=== PATIENT | male | born 1945 | race Caucasian/White ===

== ENCOUNTER 2016-10-26 11:42 | Inpatient (IN) ==
[2016-10-26] MEDS ORDERED: 0.9 % SODIUM CHLORIDE 500 ML IV ONE (12:06)
--- NOTE | 2016-10-26 12:33 | Emergency Department Note ---
General Adult HPI - General Chief complaint: Blood Pressure Problem Stated complaint: blood pressure problem Time Seen by Provider: 10/26/16 12:10 Source: patient Mode of arrival: wheelchair Limitations: no limitations - History of Present Illness HPI Narrative: patient is 71-year-old male with a long history of renal failure and previous obstructions, who presented today to his general administrator for care, his blood pressure was found to be low and he was tachycardic, so Dr. Mcgraw sent him to the ER. He states that other than feeling tired he has not felt ill, no fevers chills sweats, denies cough, admits some dyspnea on exertion, - Related Data Home Medications Medication Instructions Recorded Confirmed Ostomy System Supplies MISCELLANE 08/18/15 12/22/15 allopurinol 300 mg tablet 300 mg PO QDAY 08/18/15 12/22/15 clonidine HCl 0.2 mg tablet 0.2 mg PO BID tab 08/18/15 12/22/15 metoprolol tartrate 100 mg tablet 200 mg PO BID tab 08/18/15 12/22/15 ostomy adhesive paste See Dose Instructions .ROUTE 08/18/15 12/22/15 .MEDSUPPLY bumetanide 2 mg tablet 2 mg PO QDAY PRN 08/30/15 12/22/15 potassium chloride ER 10 mEq 10 meq PO QDAY PRN tab 08/30/15 12/22/15 tablet,extended release Previous Rx's Medication Instructions Recorded calcitriol 0.25 mcg capsule 0.25 mcg PO QDAY #60 cap 01/27/16 sodium bicarbonate 650 mg tablet 650 mg PO BID #60 tab 02/21/16 Allergies Allergy/AdvReac Type Severity Reaction Status Date / Time No Known Drug Allergies Allergy Verified 10/26/16 11:44 Review of Systems All systems ED: reviewed and negative except as stated. Past Medical History - Past Medical History Medical history: Reports: hypertension, renal disease, other (kidney failure on dialysis, hydronephrosis, colostomy,) Surgical history ED: Reports: colostomy - Social History smoking status: Former smoker Physical Exam - General Limitations: no limitations General appearance: alert, lethargic - Head Head exam: atraumatic, normocephalic - Neck Neck exam: Present: normal inspection, trachea midline. Absent: thyromegaly - Chest Chest inspection: Present: normal inspection, symmetric chest wall rise - Respiratory Respiratory exam: Present: normal lung sounds bilaterally. Absent: respiratory distress, wheezes, stridor - Cardiovascular Cardiovascular exam: Present: normal rhythm, tachycardia, +S1, +S2. Absent: JVD - Abdominal Exam Abdominal exam: Present: soft, normal bowel sounds (olostomy in place left lower quadrant, contents appear brown without signs of blood). Absent: distention, tenderness, guarding, rebound - Skin Skin exam: Present: dry, pallor (slight) Course - Reevaluation(s) Reevaluation #1: patient was found to have significant UT a hemoglobin of 7. Patient was admitted. Vital Signs Temperature 96.8 F L 10/26/16 11:42 Pulse Rate 92 H 10/26/16 11:42 Respiratory Rate 22 10/26/16 11:42 Blood Pressure 98/63 10/26/16 11:42 Pulse Oximetry (%) 100 10/26/16 11:42 Temperature 97.2 F 10/26/16 19:54 Pulse Rate 92 H 10/26/16 19:54 Respiratory Rate 16 10/26/16 19:54 Blood Pressure 94/59 10/26/16 19:54 Pulse Oximetry (%) 100 10/26/16 19:54 Medical Decision Making - Lab Data Result diagrams: 10/26/16 13:28 10/26/16 13:28 Lab Results 10/26/16 10/26/16 10/26/16 Range/Units 13:24 13:28 13:28 WBC 21.0 H (4.5-11.0) K/mcL RBC 2.41 L (4.50-5.90) M/mcL Hgb 7.0 L* (13.5-16.5) g/dL Hct 21.6 L (41.0-55.0) % MCV 89.8 (80.0-100.0) fL MCH 28.9 (26.0-34.0) pg MCHC 32.2 (31.0-36.0) g/dL RDW 17.2 H (11.5-14.5) % Plt Count 395 (140-440) K/mcL MPV 6.8 L (7.4-10.4) fL Gran % 93.1 H (38.0-78.0) % Lymph % (Auto) 3.5 L (15.5-49.0) % Sherman % (Auto) 3.2 (1.0-12.0) % Eos % (Auto) 0.1 (0.0-7.0) % Baso % (Auto) 0.1 (0.0-2.0) % Gran # 19.5 H (1.8-8.0) K/mcL Lymph # (Auto) 0.7 L (1.5-4.8) K/mcL Sherman # (Auto) 0.7 (0.1-0.9) K/mcL Eos # (Auto) 0 (0.0-0.7) K/mcL Baso # (Auto) 0 (0.0-0.3) K/mcL Total Counted 100 Seg Neutrophils % 93 H (38-78) % Band Neutrophils % 1 (0-10) % Lymphocytes % 4 L (15-49) % Monocytes % (Manual) 2 (1-12) % Platelet Estimate Normal (NORMAL) RBC Morphology Normal (NORMAL) VBG Lactic Acid 1.5 (0.5-2.2) mmol/L Sodium (133-145) mmol/L Potassium (3.3-5.1) mmol/L Chloride (96-108) mmol/L Carbon Dioxide (22-30) mmol/L Anion Gap (8-16) BUN (8-23) mg/dl Creatinine (0.7-1.2) mg/dl GFR Calculation Glucose (70-105) mg/dL Calcium (8.6-10.4) mg/dl Total Bilirubin (0.0-1.0) mg/dL AST (0-37) U/l ALT (0-40) U/l Alkaline Phosphatase (39-117) U/L Total Protein (5.9-8.4) gm/dL Albumin (3.2-5.2) gm/dL Globulin (2.2-3.7) gm/dL Albumin/Globulin Ratio (1.0-2.3) Procalcitonin (<0.10) ng/mL 10/26/16 10/26/16 Range/Units 13:28 13:28 WBC (4.5-11.0) K/mcL RBC (4.50-5.90) M/mcL Hgb (13.5-16.5) g/dL Hct (41.0-55.0) % MCV (80.0-100.0) fL MCH (26.0-34.0) pg MCHC (31.0-36.0) g/dL RDW (11.5-14.5) % Plt Count (140-440) K/mcL MPV (7.4-10.4) fL Gran % (38.0-78.0) % Lymph % (Auto) (15.5-49.0) % Sherman % (Auto) (1.0-12.0) % Eos % (Auto) (0.0-7.0) % Baso % (Auto) (0.0-2.0) % Gran # (1.8-8.0) K/mcL Lymph # (Auto) (1.5-4.8) K/mcL Sherman # (Auto) (0.1-0.9) K/mcL Eos # (Auto) (0.0-0.7) K/mcL Baso # (Auto) (0.0-0.3) K/mcL Total Counted Seg Neutrophils % (38-78) % Band Neutrophils % (0-10) % Lymphocytes % (15-49) % Monocytes % (Manual) (1-12) % Platelet Estimate (NORMAL) RBC Morphology (NORMAL) VBG Lactic Acid (0.5-2.2) mmol/L Sodium 135 (133-145) mmol/L Potassium 4.4 (3.3-5.1) mmol/L Chloride 100 (96-108) mmol/L Carbon Dioxide 17 L (22-30) mmol/L Anion Gap 18.0 H (8-16) BUN 58 H (8-23) mg/dl Creatinine 5.1 H* (0.7-1.2) mg/dl GFR Calculation 11 Glucose 102 (70-105) mg/dL Calcium 8.0 L (8.6-10.4) mg/dl Total Bilirubin 0.2 (0.0-1.0) mg/dL AST 12 (0-37) U/l ALT 6 (0-40) U/l Alkaline Phosphatase 109 (39-117) U/L Total Protein 5.2 L (5.9-8.4) gm/dL Albumin 2.2 L (3.2-5.2) gm/dL Globulin 3.0 (2.2-3.7) gm/dL Albumin/Globulin Ratio 0.7 L (1.0-2.3) Procalcitonin 3.88 (<0.10) ng/mL Disposition Pt seen by MANAGER OF PROGRAM/PA only: No Clinical Impression: UTI (urinary tract infection) Disposition: Xfer As Inpt ([facility]) Condition: Undetermined
--- NOTE | 2016-10-26 13:02 | XRay Report ---
CLINICAL INFORMATION: Sepsis COMPARISON: None. FINDINGS:The heart size, mediastinum and pulmonary vessels are unremarkable. The lungs are clear. There are no effusions. Minimal compression fractures seen throughout the mid lower thoracic spine IMPRESSION: No acute cardiopulmonary disease.. Interpreted and Authenticated by: Jack Bautista 10/26/16
--- NOTE | 2016-10-26 13:52 | Ultrasound Report ---
CLINICAL INFORMATION: Renal failure COMPARISON: 09/06/2015 FINDINGS: Both kidneys are borderline atrophic: The right is 8.1 x 4.5 cm and the left is 9.3 x 5.1 cm. Renal parenchymal echotexture is echogenic compatible with medical renal disease. There is a 10 mm cyst mid right kidney. A 7 nonobstructing stone is seen in the mid left kidney. No hydronephrosis. Urinary bladder is decompressed but shows no gross abnormality IMPRESSION: 1. No evidence of hydronephrosis 2. Elevated renal parenchymal echotexture compatible medical renal disease 3. Similar nonobstructing stone mid calyx the left kidney Interpreted and Authenticated by: Jack Bautista 10/26/16
[2016-10-26 14:15] LABS: Basophils # (Auto) 0 K/mcL (0.0-0.3); Basophils % (Auto) 0.1 % (0.0-2.0); Eosinophils # (Auto) 0 K/mcL (0.0-0.7); Eosinophils % (Auto) 0.1 % (0.0-7.0); Granulocytes % (Auto) 93.1 % (38.0-78.0); Lymphocytes # (Auto) 0.7 K/mcL (1.5-4.8); Lymphocytes % (Auto) 3.5 % (15.5-49.0); Mean Cell Volume 89.8 fL (80.0-100.0); Mean Corpuscular HGB Conc 32.2 g/dL (31.0-36.0); Mean Corpuscular Hemoglobin 28.9 pg (26.0-34.0); Monocytes # (Auto) 0.7 K/mcL (0.1-0.9); Monocytes % (Auto) 3.2 % (1.0-12.0); Platelet Count 395 K/mcL (140-440); RBC 2.41 M/mcL (4.50-5.90); Red Cell Distribution Width 17.2 % (11.5-14.5)
[2016-10-26 14:23] LABS: ALT/SGPT 6 U/l (0-40); Albumin 2.2 gm/dL (3.2-5.2); Albumin/Globulin Ratio 0.7 (1.0-2.3); Alkaline Phosphatase 109 U/L (39-117); Blood Urea Nitrogen 58 mg/dl (8-23)
[2016-10-26 14:53] LABS: Band Neutrophils % 1 % (0-10); Lymphocytes % 4 % (15-49); Monocytes % (Manual) 2 % (1-12); Platelet Estimate NORMAL (NORMAL); RBC Morphology NORMAL (NORMAL); Segmented Neutrophils % 93 % (38-78)
[2016-10-26] MEDS ORDERED: PIPERACILLIN SODIUM/TAZOBACTAM 3.375 GM in DEXTROSE 5% IN WATER 50 ML IV ONE (16:07)
[2016-10-26] MEDS ORDERED: VANCOMYCIN 1,000 MG in 0.9 % SODIUM CHLORIDE 250 ML IV ONE (16:07)
[2016-10-26] MEDS ORDERED: PIPERACILLIN SODIUM/TAZOBACTAM 3.375 GM VIAL IV ONE (16:16)
[2016-10-26] MEDS ORDERED: 0.9 % SODIUM CHLORIDE 1,000 ML IV SCH (17:15)
--- NOTE | 2016-10-26 17:25 | Cat Scan Report ---
CLINICAL INFORMATION: Abdominal pain and hypertension. History of colon carcinoma COMPARISON: 07/03/[address] [facility]. TECHNIQUE: 2.5 mm helical slices were obtained from the mid heart through the subtrochanteric regions. Following reconstruction, 2.5 mm sagittal, coronal and axial reformatted images were processed and reviewed at bone, lung and soft tissue windows. FINDINGS: Lung bases show no nodules only minimal scattered scarring and/or atelectasis. There are no effusions. The visualized heart is grossly normal. Images should the abdomen show the noncontrasted gallbladder and bile ducts, liver, both adrenal glands, spleen, pancreas and aorta to be normal in size, configuration and attenuation without focal lesion. Pelvic images show a large region of fibrosis dominating the true pelvis and presacral region spanning 9.4 cm. It is unchanged. There is heavy calcification expected location of the urinary bladder wall as previously seen. Diego catheter is in place within the urinary bladder lumen and is functional. Bilateral double pigtail ureteral stents are in satisfactory position - the proximal end in the upper collecting system of each kidney and the distal and in the urinary bladder. It appears to be functional functional: There is no evidence of hydronephrosis. Mild bilateral renal atrophy noted with scattered scarring. No free air, free fluid and no adenopathy. Distal sigmoid colectomy changes noted. The mid sigmoid has been brought through a colostomy in the left lower quadrant. There is a 3.6 cm peristomal hernia in the setting of mesenteric fat adjacent to the colostomy. No evidence of bowel obstruction - the residual colon small bowel and stomach are normal in caliber. Bone windows show no osseous metastases or other abnormality IMPRESSION: 1. 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 Presumably, this is related to prior radiation for colon malignancy. The extent is unchanged from a comparison study 1.5 years ago. Urinary bladder is encased by fibrosis. A Diego catheter is in proper position in the urinary bladder lumen. There are bilateral ureteral stents in satisfactory position and appear to be functional as there is no evidence of hydronephrosis. Mild bilateral renal atrophy is noted. 2. No evidence of metastatic disease or adenopathy 3. Partial sigmoid colectomy for carcinoma. Colostomy in the left lower quadrant for the proximal sigmoid colon noted. There is a 3.6 cm parastomal hernia consisting of mesenteric fat Interpreted and Authenticated by: Jack Bautista 10/26/16
[2016-10-26] MEDS ORDERED: NALOXONE HCL 0.4 MG/ML VIAL IV PRN (17:51)
[2016-10-26] MEDS ORDERED: ONDANSETRON 4 MG/2 ML VIAL IV PRN (17:51)
[2016-10-26] MEDS ORDERED: VANCOMYCIN PER PHARMACY IV SCH (17:51)
[2016-10-26] MEDS ORDERED: IPRATROPIUM/ALBUTEROL 3 ML AMPUL.NEB NEB PRN (17:51)
[2016-10-26] MEDS ORDERED: 0.9 % SODIUM CHLORIDE 250 ML IV SCH (17:51)
[2016-10-26] MEDS ORDERED: HYDROmorphone 2 MG/ML SYRINGE IV PRN (17:51)
[2016-10-26] MEDS ORDERED: KETAMINE 10 MG/ML ML IV PRN (19:01)
[2016-10-26] MEDS ORDERED: MIDAZOLAM 2 MG/2 ML VIAL IV SCH (19:15)
[2016-10-26] MEDS ORDERED: PROPOFOL 200 MG/20 ML VIAL IV SCH (19:15)
--- NOTE | 2016-10-26 19:17 | EGD Procedure Note ---
EGD Procedure Notes - Procedure Information Patient information: Note initiated : 10/26/16 at 7:12 pm Service Date: 10/26/16 Patient: Roland Moon 71 y/o M admitted on 10/26/16 for blood pressure problem. Procedure Narrative: EGD report Endoscopist: Antolin Calvin DO Assistants: Endoscopy nurse and techs Referring physician: Scope: GUILLE GIF 160 Medications given: 1 mg Versed, 130 mg Propofol Reason for exam: 71 y/o man with history of colon cancer s/p colectomy and ileostomy bag, CKD from chronic obstructive uropathy, and HTN, presented to the ED today for weakness. Was found to have acute on chronic anemia with Hgb 7, Heme-positive black stools, and mild increase in his Cr. His BP was in the 90s systolic when he arrived, and I was asked to assist in his care. Extent of exam: 4th portion of the duodenum/proximal jejunum. Post-procedural diagnosis: 1. Mild gastritis with small erosions in the fundus and body, not actively bleeding. Random biopsies were taken to rule out H pylori. 2. 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 Normal esophagus and small bowel Recommendations: 1. Return to [facility] outpatient GI clinic to discuss the biopsies, and any further symptoms, in 3-4 weeks after discharge. 2. Continue current medications 3. If gastric biopsy shows H pylori, treat with sequential therapy to eradication. 4. Start Protonix 40 mg daily 5. Advance diet as tolerated 6. Avoid NSAIDs Description of procedure: An informed consent was obtained with the risks, benefits, and alternatives to upper GI endoscopy explained, including the risk of perforation (1:10,000), and the patient agreed to proceed. Immediately prior to sedation, the patient's ASA classification was Class 2, and Mallampati score III. No contraindications were noted on physical exam. After being placed in the left lateral decubitus position, the patient identification was verified prior to the procedure. IV moderate sedation was administered under my direct supervision. Assessment of their sedation showed no complications with stable cardiovascular systems while comfortably sedated. Estimated blood loss for the procedure was 2 mL from biopsies. The patient tolerated the procedure well without any apparent complications. Findings: Oropharynx: Normal Esophagus: Normal mucosa GE junction: 40 cm Stomach: The fundus and body had small areas of punctate erosions and minimal gastritis. There was a 3 mm AVM in the gastric body. Pylorus: Normal patency Duodenal bulb: Normal mucosa, no other AVMs D2-4: Normal mucosa, no other AVMs Proximal jejunum: Normal mucosa, no other AVMs
[2016-10-26] MEDS ORDERED: PROPOFOL 20 ML IV ONE (19:25)
[2016-10-26] MEDS ORDERED: MIDAZOLAM 2 MG/2 ML VIAL ONE (19:25)
--- NOTE | 2016-10-26 19:46 | Internal Med History&Physical ---
Medical - H&P: HPI Patient information: Note initiated : 10/26/16 at 7:33 pm Service Date, if different from initiated Date: [] Patient: Roland Moon 71 y/o M admitted on 10/26/16 for blood pressure problem. Chief Complaint: [] History of present illness: Mr. Moon is a 71 year old [place] history of hypertension CKD, hydronephrosis in the past,bilateral stents in place, was sent to the ER from the nephrology clinic for evaluation of low blood pressure, tachycardia. The patient notes that he has had chronic weakness going on for the last few months, however, denies any other symptoms. 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 The patient had a blood pressure systolic and 90, his heart rate is 140, Creat increased from 3.8-5.1. The patient underwent a chest x-ray which was reported as negative,ultrasound of the kidneys was negative, CT abdomen and pelvis without contrast was negative for retroperitoneal hematoma. Hydronephrosis or any other acute pathology. The patient was admitted to the hospital for further management. The patient denied any complaints like fever, chills cough, shortness of breath , burning urination, increased frequency of urination. Has a chronic indwelling JERONIMO catheter. He denied any symptoms of abdominal pain, nausea, vomiting, increased stoma output, hematuria or flank. Blood in the stoma.occult blood was positive. The last hemoglobin was 9.6 on 12.01 done in AUGUST, the patient was admitted to another facility to 3 months ago, but he also had anemia and was given some . Blood transfusions. He is not sure if he had an EGD scope or a colonoscopy. The patient has a history of colon cancer, status post Hemicolectomy,he has a ostomy in place. These underwent radiation therapy after surgery. Review of systems: CONSTITUTIONAL: weight loss (chr), fever, chills,Present weakness and fatigue HEENT: Eyes: No visual loss, blurred vision, double vision or yellow sclerae. Ears, Nose, Throat: No hearing loss, sneezing, congestion, runny nose or sore throat. SKIN: No rash or itching. CARDIOVASCULAR: No chest pain, chest pressure or chest discomfort. No palpitations or edema. RESPIRATORY: No shortness of breath, cough or sputum. GASTROINTESTINAL: No nausea, vomiting or diarrhea or constipation. No abdominal pain or blood in stools No Renee. (today has some dark stools) GENITOURINARY: Denies Burning on urination. Blood in urine, or foul smelling urine , chr jeronimo NEUROLOGICAL: No headache, dizziness, syncope, paralysis, tremors, numbness or tingling in the extremities. No change in bowel or bladder control. MUSCULOSKELETAL: No muscle, back pain, joint pain or stiffness. HEMATOLOGIC: No bleeding or bruising. No enlarged nodes PSYCHIATRIC: No depression or anxiety. ENDOCRINOLOGIC: No reports of sweating, cold or heat intolerance. No polyuria or polydipsia. ALLERGIES: No hives, eczema or rhinitis. Skin: No rash, no jaundice, cyanosis or pallor. Medical - H&P: [facility] Medical history: Medical History (Last Updated 08/31/15 @ 15:28 by Samantha Alfaro) Gross hematuria (Chronic) Obstructive uropathy (Chronic) Chronic renal insufficiency (Chronic) Colon cancer (Chronic) Acute urinary obstruction (Chronic) Renal insufficiency syndrome (Chronic) HTN (hypertension) (Chronic) Edema (Chronic) Scar tissue (Chronic) Acute bilateral obstructive uropathy (Chronic) History of colon cancer (Chronic) Hydronephrosis (Chronic) Rectal mass (Chronic) Chronic kidney disease (Chronic) Elevated serum creatinine (Chronic) Surgical history: Past Surgical History (Last Updated 08/18/15 @ 09:00 by Trinity Badillo) History of colostomy (Chronic) History of echocardiogram (Chronic 01/08/13) History of radiation therapy (Chronic) Pertinent family history: Family History Other No pertinent family history Medical - H&P: Meds Home Medications Medication Instructions Recorded Confirmed Type Ostomy System Supplies MISCELLANE 08/18/15 12/22/15 History allopurinol 300 mg tablet 300 mg PO QDAY 08/18/15 12/22/15 History clonidine HCl 0.2 mg tablet 0.2 mg PO BID tab 08/18/15 12/22/15 History metoprolol tartrate 100 mg tablet 200 mg PO BID tab 08/18/15 12/22/15 History ostomy adhesive paste See Dose Instructions .ROUTE 08/18/15 12/22/15 History .MEDSUPPLY bumetanide 2 mg tablet 2 mg PO QDAY PRN 08/30/15 12/22/15 History potassium chloride ER 10 mEq 10 meq PO QDAY PRN tab 08/30/15 12/22/15 History tablet,extended release calcitriol 0.25 mcg capsule 0.25 mcg PO QDAY #60 cap 01/27/16 01/27/16 Rx sodium bicarbonate 650 mg tablet 650 mg PO BID #60 tab 02/21/16 Rx Allergies Allergy/AdvReac Type Severity Reaction Status Date / Time No Known Drug Allergies Allergy Verified 10/26/16 11:44 Medical - H&P: Exam - Constitutional Vitals: Temp Pulse Resp BP Pulse Ox 98.4 F 91 H 16 114/78 100 10/26/16 18:00 10/26/16 18:00 10/26/16 19:01 10/26/16 19:01 10/26/16 19:01 Exam: GENERAL: The patient is a well-developed, well-nourished in no apparent distress. Is alert and oriented x3. appears pale. VITAL SIGNS: Reviewed and as noted elsewhere. HEENT: Head is normocephalic and atraumatic. Extraocular muscles are intact. Pupils are equal, round, and reactive to light. Nares appeared normal. Mouth appears any without lesions. Mucous membranes are dry NECK: Normal to inspection, Supple, No lymphadenopathy or thyromegaly. LUNGS: Air entry equal on both sides, no wheezing, crackles or rhonchi noted. No accessory muscles of respiration HEART: Regular rate and rhythm normal, S1 and S2 heard, no Gallop, S3 or Rub Noted, No Gross murmur heard. ABDOMEN: Soft, nontender, and nondistended. Positive bowel sounds. No hepatosplenomegaly was noted. Ostomy with dark stools, no pietro blood. EXTREMITIES: No cyanosis, clubbing, rash, lesions or edema. NEUROLOGIC: Cranial nerves II through XII are grossly intact. Motor and Sensory System Grossly Intact PSYCHIATRIC: Normal affect, Normal Mood. Appropriate Behavior. SKIN: No ulceration or wounds noted, No jaundice, No rash noted. Medical - H&P: Reslt - Labs CBC & Chem 7: 10/26/16 13:28 10/26/16 13:28 Medical - H&P: A/P - Narrative A/P Narrative: Assessment Sepsis UTI Severe Anemia Acute on Chr renal failure HTN Plan Treat sepsis as per protocol. IV fluids, BP is stable. IV vanco and zosyn given in ER, will switch to rocephin in light of UTI will need jeronimo change Transfuse 2 units prbc, recheck h/h GI consult for EGD scopy IV ppi Send anemia workup monitor renal function, nephrology consulted. Hold BP meds for now, pt reports that he has stopped taking DVT SCD Diet NPO for now, Renal diet after EGD Full code. Medical - H&P: Qual - VTE Deep Vein Thrombosis/Pulmonary Embolism Present on Admission: No Social History - Social History occupational status: retired - Tobacco smoking status: Never smoker - Alcohol alcohol intake frequency: 0-2 drinks per day
--- NOTE | 2016-10-26 20:40 | Nephrology Consult Note ---
History of Present Illness - Reason for Consult Patient information: Note initiated : 10/26/16 at 8:33 pm Service Date, if different from initiated Date: [] Patient: Roland Moon 71 y/o M admitted on 10/26/16 for blood pressure problem. Chief Complaint: [] Consult date: 10/26/16 chronic renal failure Requesting physician: Pravin Grijalva - Chief Complaint weakness - History of Present Illness Patient is a 71 y/o pleasant white male with multiple medical issues including CKD who was seen in my clinic this am and noted to have hypotension and tachycardia and hence was sent to ER The patient has had multiple ongoing issues recently, he was hospitalised at [facility] in june-july for urosepsis, acute on chronic renal failure, etc. He had prolonged hospitalisation followed by SNF placement and was discharged sometime in August. He states that he had bilateral hydronephrosis then and needed change of his stents, antibiotics and blood transfusion. Post hospital stay he has not been doing good with poor po intake, weakness and he has lost almost 40 lbs since last seen in fall last year. He denies any fever, chills no diarrhea,nausea, vomiting no other pertinent history provided In ER patient was noted to have WBC count of 21K with left shift, Hb of 7 down from 9.8 a month ago, his s.creat was upto 5.1, elevated procalcitonin he is hemoccult positive his CT scan of the abdomen and renal US was unremarkable for new change, he does have chronic issues which seem stable and there is no hydronpehrosis he was given zosyn and vanc on my recommendation, IVF and subsequently hospitalised he also has EGD which shows mild gastritis with multiple erosions and single AVM Review of Systems All systems PM: reviewed and no additional remarkable complaints except as stated ( IN hpi) Past History Past medical history: HTN Colon cancer s/p hemicolectomy and radiation surgery h/o bilateral hydronephrosis s/o stent placement and change of this h/o CKD stage IV/V renal osteodystrophy metabolic acidosis dyslipidemia chronic anemia gout Past surgical history: as mentioned above Past family history: not contributory Past social history: lives with his mother in [place] he has no current addictions Medications and Allergies Home Medications Medication Instructions Recorded Confirmed Type Ostomy System Supplies MISCELLANE 08/18/15 12/22/15 History allopurinol 300 mg tablet 300 mg PO QDAY 08/18/15 12/22/15 History clonidine HCl 0.2 mg tablet 0.2 mg PO BID tab 08/18/15 12/22/15 History metoprolol tartrate 100 mg tablet 200 mg PO BID tab 08/18/15 12/22/15 History ostomy adhesive paste See Dose Instructions .ROUTE 08/18/15 12/22/15 History .MEDSUPPLY bumetanide 2 mg tablet 2 mg PO QDAY PRN 08/30/15 12/22/15 History potassium chloride ER 10 mEq 10 meq PO QDAY PRN tab 08/30/15 12/22/15 History tablet,extended release calcitriol 0.25 mcg capsule 0.25 mcg PO QDAY #60 cap 01/27/16 01/27/16 Rx sodium bicarbonate 650 mg tablet 650 mg PO BID #60 tab 02/21/16 Rx Allergies Allergy/AdvReac Type Severity Reaction Status Date / Time No Known Drug Allergies Allergy Verified 10/26/16 11:44 Exam - Vital Signs Vital signs: Temp Pulse Resp BP Pulse Ox 97.2 F 92 H 16 94/59 100 10/26/16 19:54 10/26/16 19:54 10/26/16 19:54 10/26/16 19:54 10/26/16 19:54 - General Appearance General appearance: appears started age, chronically ill, frail EENT: PERRL (pale conjunctiva) Neck: no JVD Respiratory: clear Cardiology: no rub, no edema, normal S1, normal S2 Gastrointestinal: tenderness (mildright upper quadrant) Integumentary: no rash, warm and dry Neurologic: no asterixis, alert and oriented x3 Musculoskeletal: no cyanosis, no clubbing Psychiatric: mood/affect appropriate Results - Lab Results 10/26/16 13:28 10/26/16 13:28 Most recent lab results Calcium 8.0 mg/dl (8.6-10.4) L 10/26/16 13:28 Assessment and Plan (1) Acute on chronic renal failure acute on chronic renal failure s.creatinine was 3.8 in August and now 5.1' worse his renal US shows mild atrophy of both kidneys but no hydronephrosis acute worsening likely from volume depletion/hypotension making urine no acute indication for dialysis however patient looks malnourished with poor muscle mass unclear what his true egfr is will follow the labs and if no significant improvement in renal function will need to obtain 24 hour urinary clearance (urea and creatinine) to see if his poor recovery os sec to ESRD I have briefly discussed possibility of initiating dialysis but patient is still refusing his BP has improved just with 500cc IVF and he will receive 2units of PRBC as well monitor I/O, dose meds to egfr less than 10 avoid nephrotoxic meds Anemia: severe, hemoccult +, s/p EGD will receive prbc transfusion will obtain anemia work up if iron stores adequate may need to initiate aranesp outpatient metabolic acidosis: mild, high Agap from renal failure, lactic acid level is normal will follow the trend and restart sodium bicarb if needed Urosepsis: wbc count is 21K UA done yesterday showed nitritie and lE positive culture pending started on ceftriaxone management per hospitalist Malnutrition: albumin trending down will need to initiate nepro discussed code, he wants to be full code for now will follow along Appreciate hospitalist help in managing Mr Moon Status: Acute
[2016-10-26] MEDS: cefTRIAXone 2 GM in DEXTROSE 5% IN WATER 50 ML IV SCH (20:50)
[2016-10-26] MEDS: PANTOPRAZOLE 40 MG VIAL IV SCH (20:52)
[2016-10-26] MEDS: 0.9 % SODIUM CHLORIDE 1,000 ML IV SCH (20:53)
[2016-10-26] MEDS ORDERED: LORazepam 2 MG/ML VIAL IV ONE (21:43)
[2016-10-26] MEDS ORDERED: LORazepam 2 MG/ML VIAL ONE (21:54)
[2016-10-26] MEDS: 0.9 % SODIUM CHLORIDE 10 ML SYRINGE IV SCH (22:31)
[2016-10-27] MEDS ORDERED: PIPERACILLIN SODIUM/TAZOBACTAM 2.25 GM in DEXTROSE 5% IN WATER 50 ML IV SCH (01:00)
[2016-10-27 02:31] LABS: Mean Cell Volume 90.2 fL (80.0-100.0); Mean Corpuscular HGB Conc 32.2 g/dL (31.0-36.0); Platelet Count 333 K/mcL (140-440); RBC 2.43 M/mcL (4.50-5.90); Red Cell Distribution Width 16.9 % (11.5-14.5)
[2016-10-27 03:06] LABS: Anisocytosis 1+ (NONE SEEN); Eosinophils % (Manual) 1 % (0-7); Lymphocytes % 6 % (15-49); Monocytes % (Manual) 8 % (1-12); Platelet Estimate NORMAL (NORMAL); RBC Morphology ABNORM (NORMAL); Segmented Neutrophils % 85 % (38-78)
[2016-10-27 04:31] LABS: Folate 17.2 ng/mL (4.2-19.9)
[2016-10-27 05:08] LABS: Vitamin B12 210.5 pg/ml (243-894)
[2016-10-27 06:43] LABS: Basophils # (Auto) 0 K/mcL (0.0-0.3); Basophils % (Auto) 0.3 % (0.0-2.0); Eosinophils # (Auto) 0.4 K/mcL (0.0-0.7); Eosinophils % (Auto) 2.7 % (0.0-7.0); Granulocytes % (Auto) 84.5 % (38.0-78.0); Lymphocytes # (Auto) 1.1 K/mcL (1.5-4.8); Lymphocytes % (Auto) 7.3 % (15.5-49.0); Mean Cell Volume 88.9 fL (80.0-100.0); Mean Corpuscular HGB Conc 33.1 g/dL (31.0-36.0); Mean Corpuscular Hemoglobin 29.4 pg (26.0-34.0); Monocytes # (Auto) 0.8 K/mcL (0.1-0.9); Monocytes % (Auto) 5.2 % (1.0-12.0); Platelet Count 349 K/mcL (140-440); Red Cell Distribution Width 16.5 % (11.5-14.5)
[2016-10-27 06:59] LABS: ALT/SGPT < 5 U/l (0-40); Albumin 1.8 gm/dL (3.2-5.2); Albumin/Globulin Ratio 0.7 (1.0-2.3); Alkaline Phosphatase 89 U/L (39-117); Bilirubin,Direct < 0.2 mg/dL (0.0-0.3); Blood Urea Nitrogen 54 mg/dl (8-23); Gamma Glutamyl Transpeptidase 21 U/L (8-61); Magnesium 1.8 mg/dL (1.6-2.5); Uric Acid 2.9 mg/dL (2.5-8.0)
--- NOTE | 2016-10-27 07:08 | XRay Report ---
CLINICAL INFORMATION: PICC placement COMPARISON: 10/26/2016 1233 hours FINDINGS: PICC line tip overlies the SVC/ right atrial junction in satisfactory position. Heart size, mediastinum and pulmonary vessels are normal. Lungs are clear. No effusions. Slight elevation left diaphragm noted on this particular film IMPRESSION: No acute disease. PICC line satisfactory position Interpreted and Authenticated by: Jack Bautista 10/27/16
[2016-10-27] MEDS: 0.9 % SODIUM CHLORIDE 1,000 ML IV SCH ×2 (07:15→09:40)
[2016-10-27] MEDS ORDERED: 0.9 % SODIUM CHLORIDE 10 ML SYRINGE IV PRN (07:25)
[2016-10-27] MEDS: SODIUM BICARBONATE 650 MG TABLET PO SCH ×2 (09:36→20:48)
[2016-10-27] MEDS: cefTRIAXone 2 GM in DEXTROSE 5% IN WATER 50 ML IV SCH (09:36)
[2016-10-27] MEDS: 0.9 % SODIUM CHLORIDE 10 ML SYRINGE IV SCH ×2 (09:39→16:56)
[2016-10-27] MEDS: PANTOPRAZOLE 40 MG VIAL IV SCH ×2 (09:39→16:56)
[2016-10-27] MEDS ORDERED: LIDOCAINE 2% URO-JET 5 ML JEL.PF.APP UR ONE (10:03)
--- NOTE | 2016-10-27 14:13 | Internal Med Progress Note ---
Medical - PN: Subj Patient information: Note initiated : 10/27/16 at 2:11 pm Service Date, if different from initiated Date: [] Patient: Roland Moon 71 y/o M admitted on 10/26/16 for Blood Pressure Problem/ Sepsis, UTI. Chief Complaint: [] Interval history: Mr. Moon is a 71 year old Malewith history of hypertension CKD, hydronephrosis in the past,bilateral stents in place, was sent to the ER from the nephrology clinic for evaluation of low blood pressure, tachycardia. The patient notes that he has had chronic weakness going on for the last few months, however, denies any other symptoms. 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 The patient had a blood pressure systolic and 90, his heart rate is 140, Creat increased from 3.8-5.1. The patient underwent a chest x-ray which was reported as negative,ultrasound of the kidneys was negative, CT abdomen and pelvis without contrast was negative for retroperitoneal hematoma. Hydronephrosis or any other acute pathology. The patient was admitted to the hospital for further management. The patient denied any complaints like fever, chills cough, shortness of breath , burning urination, increased frequency of urination. Has a chronic indwelling DUCKWORTH catheter. He denied any symptoms of abdominal pain, nausea, vomiting, increased stoma output, hematuria or flank. Blood in the stoma.occult blood was positive. The last hemoglobin was 9.6 on 12.01 done in AUGUST, the patient was admitted to another facility to 3 months ago, but he also had anemia and was given some . Blood transfusions. He is not sure if he had an EGD scope or a colonoscopy. The patient has a history of colon cancer, status post Hemicolectomy,he has a ostomy in place. These underwent radiation therapy after surgery. 10/27: Pt seen examined, no acute overnight events, s/p 2 units prbc, hb stable this AM, s/p EGD revealed gastritis small erosions and one AVM, no active bleeding. Patient had a pICC placed for IV access yesterday. He denied any acute issue labs reviewed, Pertinent ROS: Denies headache, dizziness Denies chest pain, palpitations Denies cough or shortness of breath Denies abdominal pain, nausea or vomiting. - Constitutional Vitals: Vital Signs Temp Pulse Resp BP Pulse Ox 97.7 F 89 16 113/65 97 10/27/16 12:01 10/27/16 12:01 10/27/16 13:30 10/27/16 12:01 10/27/16 13:30 Period Temp Pulse Resp BP Sys/De Luna Pulse Ox Last 24 Hr 97.2 F-98.9 F 85-97 11-21 90-120/57-78 92-100 Intake and Output 10/27/16 10/27/16 10/27/16 05:59 13:59 21:59 Intake Total 600 / 600 Output Total 590 / 590 575 / 575 Balance -590 / -590 25 Intake & Output: Intake & Output 10/27/16 10/27/16 10/27/16 05:59 13:59 21:59 Intake Total 600 / 600 Output Total 590 / 590 575 / 575 Balance -590 / -590 Intake: Oral 600 / 600 Output: Urine Catheter Amount 540 / 540 575 / 575 Stool 50 / 50 Other: Meal Lunch Percent of Meal Consumed 100% Feeding Ability Assist with Tray Set Up Exam: Constitutional; Afebrile, cooperative, alert, not in distress. pallor resolved. Eyes- No icterus, , No periorbital swelling Ears- Ext ear normal, hearing normal to conversation. Neck- Midline trachea, supple Respiratory system: Air Entry equal on both sides, No crackles or wheezing, no rhonchi. CVS- Rate rhythm regular, S1,S2 heard, no gallop, no rub. Abdomen- Soft nontender abdomen, no organomegaly, no tenderness, no guarding or rigidity, ostmoy in place ASSISTANT IMPORT MANAGER- AOOx3, moving all extremities, no gross focal deficit noted. Medical - PN: Obj Da - Labs CBC & Chem 7: 10/27/16 05:20 10/27/16 05:30 Labs: Abnormal Lab Results 10/27/16 10/27/16 10/27/16 05:30 05:20 01:45 WBC 14.9 H 13.6 H RBC 3.10 L 2.43 L Hgb 9.1 L 7.1 L Hct 27.6 L 21.9 L RDW 16.5 H 16.9 H MPV 6.9 L 6.8 L Gran % 84.5 H Lymph % (Auto) 7.3 L Gran # 12.5 H Lymph # (Auto) 1.1 L Seg Neutrophils % 85 H Lymphocytes % 6 L RBC Morphology Abnorm A Anisocytosis 1+ A Carbon Dioxide 17 L BUN 54 H Creatinine 4.6 H Calcium 7.5 L Phosphorus 5.5 H Total Protein 4.5 L Albumin 1.8 L Albumin/Globulin Ratio 0.7 L Meds: Medications Acetaminophen (Tylenol) 650 mg PO Q4-6HP PRN PRN Reason: PAIN/FEVER > 101 Albuterol/Ipratropium (Duoneb) 3 ml NEB Q6HRT PRN PRN Reason: Shortness Of Breath Or Wheezing Heparin Sodium (Porcine) (Heparin Flush) 2 ml IV Q12 [facility] Last Admin: 10/27/16 09:37 Dose: 2 ml Hydromorphone HCl (Dilaudid) 0.5 mg IV Q2HP PRN PRN Reason: Pain Last Admin: 10/26/16 20:49 Dose: 0.5 mg Ceftriaxone Sodium 2 gm/ (Dextrose) 50 mls @ 100 mls/hr IV Q24H [facility] Last Admin: 10/27/16 09:36 Dose: 100 mls/hr Sodium Chloride (Sodium Chloride 0.9%) 1,000 mls @ 84 mls/hr IV .[id number] [facility] Last Admin: 10/27/16 09:40 Dose: 84 mls/hr Naloxone HCl (Narcan) 0.1 mg IV Q2MIN PRN PRN Reason: Opiate Reversal Ondansetron HCl (Zofran) 4 mg IV Q4-6HP PRN PRN Reason: Nausea And Vomiting Pantoprazole Sodium (Protonix) 40 mg IV BIDAC [facility] Last Admin: 10/27/16 09:39 Dose: 40 mg Sodium Bicarbonate (Sodium Bicarbonate) 1,300 mg PO BID [facility] Last Admin: 10/27/16 09:36 Dose: 1,300 mg Sodium Chloride (Saline Flush) 10 ml IV Q8 [facility] Last Admin: 10/27/16 09:39 Dose: 10 ml Sodium Chloride (Saline Flush) 10 ml IV UD PRN PRN Reason: FLUSH Medical - PN: A/P - Time Spent With Patient Total time spent is greater than 50% in coordination of care (as documented) at patient's floor/unit and/or counseling patient: - Narrative A/P Narrative: Assessment Sepsis UTI Severe Anemia duet o chr blood loss and renal failuire. Acute on Chr renal failure HTN Acidosis, hagma and nagma Severe malnutrition Plan BP stable, sepsis improving, IV vTreat UTI with IV rocephin, continue iv antibiotics for now, duckworth changed today s/p 2 units, hb > 9.0, monitor for now, transfuse again if needed. GI consult appreciated, s/p EGD, monitor. continue PPI elevated ferritin likely from acute state. renal function somewhat better started on sodium bicarbonate. Advance diet, add nepro, dietar y eval. appreciate nephrology consult. DVT SCD Diet renal with nepro Full code. Medical - PN: Qual - VTE Deep Vein Thrombosis/Pulmonary Embolism Present on Admission: No
--- NOTE | 2016-10-27 16:22 | Nephrology Progress Note ---
Subjective Patient information: Note initiated : 10/27/16 at 4:18 pm Service Date, if different from initiated Date: [] Patient: Roland Moon 71 y/o M admitted on 10/26/16 for Blood Pressure Problem/ Sepsis, UTI. Chief Complaint: [] Principal diagnosis: sepsis, Acute on chronic renal failure Interval history: s/p PRBC transfusion yesterday Vital signs stable denies SOB, CP, dizziness No edema no overnight events reported Pertinent ROS: as listed above Objective - Vital Signs Vital signs: Vital Signs Temp Pulse Pulse Resp BP BP Pulse Ox 10/27/16 13:30 16 97 10/27/16 12:01 97.7 F 89 18 113/65 99 10/27/16 11:09 93 H 15 99 10/27/16 11:01 85 16 101/67 98 10/27/16 10:18 88 16 99 10/27/16 10:01 97 H 18 120/71 100 10/27/16 09:01 92 H 15 103/70 99 10/27/16 08:01 97.8 F 91 H 16 111/69 99 10/27/16 07:01 88 16 100/64 99 10/27/16 06:01 18 106/70 99 10/27/16 05:01 17 97/65 100 10/27/16 04:01 98.9 F 15 102/70 100 10/27/16 03:01 15 110/71 100 10/27/16 02:01 97.9 F 11 L 90/58 99 10/27/16 01:01 13 90/62 100 10/27/16 00:01 98.4 F 21 101/69 100 10/26/16 23:11 98.0 F 12 94/73 100 10/26/16 23:01 98.0 F 12 98/71 100 10/26/16 21:26 16 93/57 99 10/26/16 20:00 98.9 F 91 H 18 101/72 99 10/26/16 19:54 97.2 F 92 H 16 94/59 100 10/26/16 19:42 97.2 F 92 H 16 114/72 100 10/26/16 19:01 16 114/78 100 10/26/16 18:00 98.4 F 91 H 16 111/68 92 Intake and Output 10/27/16 10/27/16 10/27/16 05:59 13:59 21:59 Intake Total 600 / 600 Output Total 590 / 590 575 / 575 Balance -590 / -590 Intake: Oral 600 / 600 Output: Urine Catheter Amount 540 / 540 575 / 575 Stool 50 / 50 Other: Meal Lunch Percent of Meal Consumed 100% Feeding Ability Assist with Tray Set Up Weight 150 lb 3.2 oz Patient Weight 10/28/16 05:59 Weight 150 lb 3.2 oz Intake & Output: Intake & Output 10/27/16 10/27/16 10/27/16 05:59 13:59 21:59 Intake Total 600 / 600 Output Total 590 / 590 575 / 575 Balance -590 / -590 Weight 150 lb 3.2 oz Intake: Oral 600 / 600 Output: Urine Catheter Amount 540 / 540 575 / 575 Stool 50 / 50 Other: Meal Lunch Percent of Meal Consumed 100% Feeding Ability Assist with Tray Set Up - General Appearance General appearance: appears started age, cachectic, chronically ill EENT: mucous membranes moist Neck: no JVD Respiratory: clear Cardiology: no rub, no edema, normal S1, normal S2 Gastrointestinal: no tenderness, no guarding Integumentary: no rash, warm and dry Neurologic: alert and oriented x3 Musculoskeletal: no erythema, no cyanosis Psychiatric: mood/affect appropriate - Lab 10/27/16 05:20 10/27/16 05:30 Most recent lab results Calcium 7.5 mg/dl (8.6-10.4) L 10/27/16 05:30 Phosphorus 5.5 mg/dL (2.7-4.5) H 10/27/16 05:30 Magnesium 1.8 mg/dL (1.6-2.5) 10/27/16 05:30 Assessment and Plan (1) Acute on chronic renal failure s.creatinine down to 4.6 no acute need for dialysis will follow the trend if no significant improvement in renal function will need 24 hour urinary work up to asses his true GFR, discussed with the patient no hyperkalemia, bicarb stable, has acidosis from CKD: will restart sodium bicarb Anemia: Hb improved to 9.0 with transfusion, low b12 and low TSAT but ferritin is 1700 will start b12 supplement and will need franny as outpt UTI: on antibiotics, UC shows pseudomonas, senstivity pending Will follow along Status: Acute
[2016-10-27] MEDS: ACETAMINOPHEN 325 MG TABLET PO PRN (16:56)
[2016-10-27] MEDS: PIPERACILLIN SODIUM/TAZOBACTAM 2.25 GM in DEXTROSE 5% IN WATER 50 ML IV SCH ×2 (16:58→23:45)
[2016-10-28] MEDS: 0.9 % SODIUM CHLORIDE 10 ML SYRINGE IV SCH ×4 (03:26→20:48)
[2016-10-28] MEDS: 0.9 % SODIUM CHLORIDE 1,000 ML IV SCH ×2 (03:38→21:05)
[2016-10-28 05:36] LABS: Basophils # (Auto) 0 K/mcL (0.0-0.3); Basophils % (Auto) 0.3 % (0.0-2.0); Eosinophils # (Auto) 0.3 K/mcL (0.0-0.7); Eosinophils % (Auto) 2.8 % (0.0-7.0); Lymphocytes # (Auto) 1.1 K/mcL (1.5-4.8); Lymphocytes % (Auto) 9.5 % (15.5-49.0); Mean Cell Volume 88.8 fL (80.0-100.0); Mean Corpuscular HGB Conc 32.4 g/dL (31.0-36.0); Mean Corpuscular Hemoglobin 28.7 pg (26.0-34.0); Monocytes # (Auto) 0.5 K/mcL (0.1-0.9); Monocytes % (Auto) 4.4 % (1.0-12.0); Platelet Count 309 K/mcL (140-440); RBC 2.79 M/mcL (4.50-5.90); Red Cell Distribution Width 17.6 % (11.5-14.5)
[2016-10-28 05:49] LABS: ALT/SGPT < 5 U/l (0-40); Albumin 1.4 gm/dL (3.2-5.2); Albumin/Globulin Ratio 0.6 (1.0-2.3); Alkaline Phosphatase 83 U/L (39-117); Bilirubin,Direct < 0.2 mg/dL (0.0-0.3); Blood Urea Nitrogen 43 mg/dl (8-23); Gamma Glutamyl Transpeptidase 20 U/L (8-61); Magnesium 1.6 mg/dL (1.6-2.5); Uric Acid 2.6 mg/dL (2.5-8.0)
[2016-10-28 06:37] LABS: Vancomycin,Random 11.8 ug/ml
[2016-10-28] MEDS: PANTOPRAZOLE 40 MG VIAL IV SCH ×2 (08:09→17:43)
[2016-10-28] MEDS: SODIUM BICARBONATE 650 MG TABLET PO SCH ×2 (08:45→20:47)
[2016-10-28] MEDS ORDERED: POTASSIUM CHLORIDE 40 MEQ in DEXTROSE 5% IN WATER 250 ML IV ONE (09:00)
--- NOTE | 2016-10-28 09:26 | Internal Med Progress Note ---
Medical - PN: Subj Patient information: Note initiated : 10/28/16 at 9:24 am Service Date, if different from initiated Date: [] Patient: Roland Moon 71 y/o M admitted on 10/26/16 for Blood Pressure Problem/ Sepsis, UTI. Chief Complaint: [] Interval history: Mr. Moon is a 71 year old Malewith history of hypertension CKD, hydronephrosis in the past,bilateral stents in place, was sent to the ER from the nephrology clinic for evaluation of low blood pressure, tachycardia. The patient notes that he has had chronic weakness going on for the last few months, however, denies any other symptoms. 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 The patient had a blood pressure systolic and 90, his heart rate is 140, Creat increased from 3.8-5.1. The patient underwent a chest x-ray which was reported as negative,ultrasound of the kidneys was negative, CT abdomen and pelvis without contrast was negative for retroperitoneal hematoma. Hydronephrosis or any other acute pathology. The patient was admitted to the hospital for further management. The patient denied any complaints like fever, chills cough, shortness of breath , burning urination, increased frequency of urination. Has a chronic indwelling DUCKWORTH catheter. He denied any symptoms of abdominal pain, nausea, vomiting, increased stoma output, hematuria or flank. Blood in the stoma.occult blood was positive. The last hemoglobin was 9.6 on 12.01 done in AUGUST, the patient was admitted to another facility to 3 months ago, but he also had anemia and was given some . Blood transfusions. He is not sure if he had an EGD scope or a colonoscopy. The patient has a history of colon cancer, status post Hemicolectomy,he has a ostomy in place. These underwent radiation therapy after surgery. 10/27: Pt seen examined, no acute overnight events, s/p 2 units prbc, hb stable this AM, s/p EGD revealed gastritis small erosions and one AVM, no active bleeding. Patient had a pICC placed for IV access yesterday. He denied any acute issue labs reviewed, 10/28: Pt seen examined, chart reviwed, no acute events, pt doing well this AM, still has some fatigue, but no other acute issues, left leg is a bit numb, but he is able to walk on it, move it, leg feels warm, pulses present. His labs reviewed, Creat is improving at 4.0, his bicarb dropped despite being on oral bicarb. Hb dropped to 8, no reported bleeding. Vit b12 is low, plan to replace IM for now. albumin is 1.4, pt not happy with the meal choices offered on a renal diet, he is on nepro supplement. Pertinent ROS: Denies headache, dizziness Denies chest pain, palpitations Denies cough or shortness of breath Denies abdominal pain, nausea or vomiting. - Constitutional Vitals: Vital Signs Temp Pulse Resp BP Pulse Ox 98.3 F 90 15 93/57 99 10/28/16 07:01 10/28/16 08:17 10/28/16 09:06 10/28/16 09:01 10/28/16 08:17 Period Temp Pulse Resp BP Sys/De Luna Pulse Ox Last 24 Hr 97.7 F-99.0 F 80-98 11-22 93-120/57-74 97-100 Intake and Output 10/27/16 10/28/16 10/28/16 21:59 05:59 13:59 Intake Total 1350 / 1350 100 / 100 850 / 850 Output Total 390 / 390 470 / 470 45 / 45 Balance 960 / 960 -370 / -370 805 / 805 Weight 153 lb 6.4 oz Intake & Output: Intake & Output 10/27/16 10/28/16 10/28/16 21:59 05:59 13:59 Intake Total 1350 / 1350 100 / 100 850 / 850 Output Total 390 / 390 470 / 470 45 / 45 Balance 960 / 960 -370 / -370 805 / 805 Weight 153 lb 6.4 oz Intake: IV 1050 / 1050 50 / 50 Sodium Chloride 0.9% 1, 1000 / 1000 000 ml @ 84 mls/hr IV . [id number] [facility] Rx#:[id number] Zosyn 2.25 gm In Dextrose 50 / 50 50 / 50 5% in Water 50 ml @ 100 mls/hr IV Q12H [facility] Rx#: [id number] Oral 300 / 300 100 / 100 800 / 800 Output: Urine Catheter Amount 390 / 390 470 / 470 45 / 45 Other: Meal Breakfast Percent of Meal Consumed 15 Feeding Ability Independent Exam: Constitutional; Afebrile, cooperative, alert, not in distress. Eyes- No icterus, , No periorbital swelling Ears- Ext ear normal, hearing normal to conversation. Neck- Midline trachea, supple Respiratory system: Air Entry equal on both sides, No crackles or wheezing, no rhonchi. CVS- Rate rhythm regular, S1,S2 heard, no gallop, no rub. Abdomen- Soft nontender abdomen, no organomegaly, no tenderness, no guarding or rigidity, stomy present legs, warm to touch, good capillary refill, dp present. 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 , Medical - PN: Obj Da - Labs CBC & Chem 7: 10/28/16 04:13 10/28/16 04:13 Labs: Abnormal Lab Results 10/28/16 10/28/16 10/27/16 04:13 04:13 05:30 WBC 11.6 H RBC 2.79 L Hgb 8.0 L Hct 24.8 L RDW 17.6 H MPV 6.7 L Gran % 83.0 H Lymph % (Auto) 9.5 L Gran # 9.6 H Lymph # (Auto) 1.1 L Seg Neutrophils % Lymphocytes % RBC Morphology Anisocytosis Potassium 3.2 L Chloride 111 H Carbon Dioxide 15 L 17 L BUN 43 H 54 H Creatinine 4.0 H 4.6 H Calcium 6.8 L 7.5 L Phosphorus 5.5 H Total Protein 3.7 L 4.5 L Albumin 1.4 L 1.8 L Albumin/Globulin Ratio 0.6 L 0.7 L 10/27/16 10/27/16 05:20 01:45 WBC 14.9 H 13.6 H RBC 3.10 L 2.43 L Hgb 9.1 L 7.1 L Hct 27.6 L 21.9 L RDW 16.5 H 16.9 H MPV 6.9 L 6.8 L Gran % 84.5 H Lymph % (Auto) 7.3 L Gran # 12.5 H Lymph # (Auto) 1.1 L Seg Neutrophils % 85 H Lymphocytes % 6 L RBC Morphology Abnorm A Anisocytosis 1+ A Potassium Chloride Carbon Dioxide BUN Creatinine Calcium Phosphorus Total Protein Albumin Albumin/Globulin Ratio Meds: Medications Acetaminophen (Tylenol) 650 mg PO Q4-6HP PRN PRN Reason: PAIN/FEVER > 101 Last Admin: 10/27/16 16:56 Dose: 650 mg Albuterol/Ipratropium (Duoneb) 3 ml NEB Q6HRT PRN PRN Reason: Shortness Of Breath Or Wheezing Cyanocobalamin (Vitamin B12) 1,000 mcg IM DAILY [facility] Stop: 11/03/16 09:01 Heparin Sodium (Porcine) (Heparin Flush) 2 ml IV Q12 [facility] Last Admin: 10/28/16 08:09 Dose: 2 ml Hydromorphone HCl (Dilaudid) 0.5 mg IV Q2HP PRN PRN Reason: Pain Last Admin: 10/26/16 20:49 Dose: 0.5 mg Piperacillin Sod/Tazobactam (Sod 2.25 gm/ Dextrose) 50 mls @ 100 mls/hr IV Q12H [facility] Last Infusion: 10/28/16 09:03 Dose: Infused Potassium Chloride 40 meq/ (Dextrose) 270 mls @ 67.5 mls/hr IV ONCE ONE Stop: 10/28/16 12:59 Last Admin: 10/28/16 08:45 Dose: 67.5 mls/hr Sodium Bicarbonate 150 meq/ (Dextrose) 1,000 mls @ 75 mls/hr IV Q20H [facility] Naloxone HCl (Narcan) 0.1 mg IV Q2MIN PRN PRN Reason: Opiate Reversal Ondansetron HCl (Zofran) 4 mg IV Q4-6HP PRN PRN Reason: Nausea And Vomiting Pantoprazole Sodium (Protonix) 40 mg IV BIDAC [facility] Last Admin: 10/28/16 08:09 Dose: 40 mg Sodium Bicarbonate (Sodium Bicarbonate) 1,300 mg PO BID [facility] Last Admin: 10/28/16 08:45 Dose: 1,300 mg Sodium Chloride (Saline Flush) 10 ml IV Q8 [facility] Last Admin: 10/28/16 06:04 Dose: 10 ml Sodium Chloride (Saline Flush) 10 ml IV UD PRN PRN Reason: FLUSH Medical - PN: A/P - Time Spent With Patient Total time spent is greater than 50% in coordination of care (as documented) at patient's floor/unit and/or counseling patient: - Narrative A/P Narrative: Assessment/ Plan Sepsis: BP stable, sepsis improving, wbc trending down, UTI: IV zosyn for UTI, urine culture is growing Pseudomonas, duckworth changed. sensitivities pending. Severe Anemia duet o chr blood loss and renal failure.: s/p 2 units, hb 8.0, monitor for now, no obvious source of bleed, will check again today. GI consult appreciated, s/p EGD, monitor. continue PPI Acute on Chr renal failure: renal function better, but creat could be falsely low given his very poor nutritional status, masking his true renal function, nephrology considering 24 hr urine creatinine clearance. HTN: Bp stable hold home meds for now. Acidosis, hagma and nagma: started on sodium bicarbonate yesterday, but bicarb dropped, will start on IV bicarb drip today. d/c saline which can contribute to NAGMA Severe malnutrition: Albumin is 1.4, on renal diet with nephro, not sure if patient is happy with his meal choices. Hypokalemia : K 3.2, replace IV Hypocalcemia: calcium low, but ok if corrected for low albumin. DVT SCD Diet renal with nepro Full code. Medical - PN: Qual - VTE Deep Vein Thrombosis/Pulmonary Embolism Present on Admission: No
[2016-10-28] MEDS ORDERED: SODIUM BICARBONATE VIAL 150 MEQ in DEXTROSE 5% IN WATER 850 ML IV SCH (10:00)
[2016-10-28] MEDS: PIPERACILLIN SODIUM/TAZOBACTAM 2.25 GM in DEXTROSE 5% IN WATER 50 ML IV SCH ×2 (10:23→20:47)
[2016-10-28] MEDS: CYANOCOBALAMIN 1,000 MCG/ML VIAL IM SCH (12:23)
[2016-10-28 12:35] LABS: Mean Cell Volume 89.9 fL (80.0-100.0); Mean Corpuscular HGB Conc 32.7 g/dL (31.0-36.0); Mean Corpuscular Hemoglobin 29.4 pg (26.0-34.0); Platelet Count 337 K/mcL (140-440); RBC 2.99 M/mcL (4.50-5.90); Red Cell Distribution Width 17.8 % (11.5-14.5)
[2016-10-28 12:50] LABS: Blood Urea Nitrogen 45 mg/dl (8-23)
[2016-10-28 13:04] LABS: Anisocytosis 1+ (NONE SEEN); Band Neutrophils % 1 % (0-10); Eosinophils % (Manual) 2 % (0-7); Lymphocytes % 5 % (15-49); Monocytes % (Manual) 5 % (1-12); Platelet Estimate NORMAL (NORMAL); RBC Morphology ABNORM (NORMAL); Segmented Neutrophils % 87 % (38-78)
[2016-10-28] MEDS ORDERED: VANCOMYCIN 500 MG in 0.9 % SODIUM CHLORIDE 100 ML IV ONE (17:00)
--- NOTE | 2016-10-28 21:47 | Nephrology Progress Note ---
Subjective Patient information: Note initiated : 10/28/16 at 9:43 pm Service Date, if different from initiated Date: [] Patient: Roland Moon 71 y/o M admitted on 10/26/16 for Blood Pressure Problem/ Sepsis, UTI. Chief Complaint: [] Principal diagnosis: sepsis, Acute on chronic renal failure Interval history: blood culture positive for gram negative bacilli, now on zosyn non oliguric c/o LE pain no SOB, CP, dizziness Poor appetite still, no nausea, vomiting urine is still very cloudy Pertinent ROS: as above Objective - Vital Signs Vital signs: Vital Signs Temp Pulse Pulse Resp BP Pulse Ox 10/28/16 21:00 78 22 99/67 99 10/28/16 20:01 84 20 108/66 99 10/28/16 19:59 98.1 F 84 21 108/66 99 10/28/16 19:25 21 10/28/16 19:01 20 105/74 10/28/16 18:15 20 10/28/16 18:01 15 120/72 10/28/16 17:33 17 10/28/16 17:01 20 103/71 10/28/16 16:25 22 10/28/16 16:01 21 120/75 10/28/16 15:01 18 110/64 10/28/16 14:50 17 89/64 10/28/16 14:49 18 10/28/16 14:01 84 22 98/65 100 10/28/16 13:01 90 14 95/72 100 10/28/16 12:07 84 20 113/67 100 10/28/16 12:03 20 111/68 10/28/16 12:01 26 H 86/72 10/28/16 12:00 98.4 F 90 24 H 111/68 99 10/28/16 11:01 14 98/67 10/28/16 10:01 22 90/61 10/28/16 09:06 15 10/28/16 09:01 20 93/57 10/28/16 08:17 90 99 10/28/16 08:14 11 L 10/28/16 08:05 15 109/63 10/28/16 07:01 98.3 F 80 17 107/65 100 10/28/16 06:01 16 99/61 100 10/28/16 05:01 21 100/67 99 10/28/16 04:01 98 F 16 111/66 100 10/28/16 03:01 18 95/62 100 10/28/16 02:01 20 101/64 100 10/28/16 01:01 22 98/64 100 10/28/16 00:01 98.5 F 17 101/60 100 10/27/16 23:01 20 100/66 100 10/27/16 22:01 20 93/64 100 Intake and Output 10/28/16 10/28/16 10/28/16 05:59 13:59 21:59 Intake Total 100 / 100 1100 / 1100 1150 / 1150 Output Total 470 / 470 145 / 145 940 / 940 Balance -370 / -370 955 / 955 210 / 210 Intake: IV 100 / 100 1000 / 1000 Zosyn 2.25 gm In Dextrose 100 / 100 5% in Water 50 ml @ 100 mls/hr IV Q12H [facility] Rx#: [id number] Oral 100 / 100 1000 / 1000 150 / 150 Output: Urine Catheter Amount 470 / 470 145 / 145 940 / 940 Stool 0 / 0 Other: Meal Breakfast Dinner Percent of Meal Consumed 15 75% Feeding Ability Independent Assist with Tray Set Up Weight 156 lb 4.8 oz Patient Weight 10/29/16 05:59 Weight 156 lb 4.8 oz Intake & Output: Intake & Output 10/28/16 10/28/16 10/28/16 05:59 13:59 21:59 Intake Total 100 / 100 1100 / 1100 1150 / 1150 Output Total 470 / 470 145 / 145 940 / 940 Balance -370 / -370 955 / 955 210 / 210 Weight 156 lb 4.8 oz Intake: IV 100 / 100 1000 / 1000 Zosyn 2.25 gm In Dextrose 100 / 100 5% in Water 50 ml @ 100 mls/hr IV Q12H [facility] Rx#: [id number] Oral 100 / 100 1000 / 1000 150 / 150 Output: Urine Catheter Amount 470 / 470 145 / 145 940 / 940 Stool 0 / 0 Other: Meal Breakfast Dinner Percent of Meal Consumed 15 75% Feeding Ability Independent Assist with Tray Set Up - General Appearance General appearance: appears started age, chronically ill, frail EENT: PERRL (pale conjunctiva ) Neck: no JVD Respiratory: clear Cardiology: no rub, no edema, normal S1, normal S2 Gastrointestinal: no tenderness, no guarding Integumentary: warm and dry Neurologic: no asterixis, alert and oriented x3 Musculoskeletal: no deformities, no erythema Psychiatric: mood/affect appropriate - Lab 10/28/16 11:30 10/28/16 11:30 Most recent lab results Calcium 7.5 mg/dl (8.6-10.4) L 10/28/16 11:30 Phosphorus 4.1 mg/dL (2.7-4.5) 10/28/16 04:13 Magnesium 1.6 mg/dL (1.6-2.5) 10/28/16 04:13 Assessment and Plan (1) Acute on chronic renal failure s.creatinine down to 4.0 no acute need for dialysis will obtain 24 hour urinary studies as patient as lost significant amount of muscle mass following prolonged recent illness no hyperkalemia, metabolic acidosis worse, from sepsis, Renal failure on bicarb supplement Anemia: Hb down to 8.0 again b12 supplement started will hold IV iron as ferritin high and active bacteremia UTI/ gram negative bacteremia: on antibiotics, UC shows pseudomonas, senstivity pending malnutrition: very poor appetite, does not eat much, will have him only on low sodium diet and see if he can eat some more overall poor prognosis Status: Acute
[2016-10-29] MEDS ORDERED: SODIUM BICARBONATE VIAL 150 MEQ in DEXTROSE 5% IN WATER 850 ML IV SCH (01:00)
[2016-10-29 03:52] LABS: Basophils # (Auto) 0 K/mcL (0.0-0.3); Basophils % (Auto) 0.2 % (0.0-2.0); Eosinophils # (Auto) 0.4 K/mcL (0.0-0.7); Granulocytes % (Auto) 81.3 % (38.0-78.0); Lymphocytes # (Auto) 1.4 K/mcL (1.5-4.8); Lymphocytes % (Auto) 11.7 % (15.5-49.0); Mean Cell Volume 88.3 fL (80.0-100.0); Mean Corpuscular HGB Conc 32.8 g/dL (31.0-36.0); Mean Corpuscular Hemoglobin 28.9 pg (26.0-34.0); Monocytes # (Auto) 0.4 K/mcL (0.1-0.9); Monocytes % (Auto) 3.8 % (1.0-12.0); Platelet Count 371 K/mcL (140-440); RBC 3.03 M/mcL (4.50-5.90); Red Cell Distribution Width 17.8 % (11.5-14.5)
[2016-10-29 04:09] LABS: ALT/SGPT < 5 U/l (0-40); Albumin 1.7 gm/dL (3.2-5.2); Albumin/Globulin Ratio 0.7 (1.0-2.3); Alkaline Phosphatase 105 U/L (39-117); Bilirubin,Direct < 0.2 mg/dL (0.0-0.3); Blood Urea Nitrogen 39 mg/dl (8-23); Gamma Glutamyl Transpeptidase 30 U/L (8-61); Magnesium 1.6 mg/dL (1.6-2.5); Uric Acid 2.9 mg/dL (2.5-8.0)
[2016-10-29] MEDS: 0.9 % SODIUM CHLORIDE 10 ML SYRINGE IV SCH ×3 (05:21→23:08)
[2016-10-29] MEDS ORDERED: POTASSIUM CHLORIDE 20 MEQ PACKET PO ONE (08:40)
[2016-10-29] MEDS: PANTOPRAZOLE 40 MG VIAL IV SCH ×2 (08:51→16:46)
[2016-10-29] MEDS: PIPERACILLIN SODIUM/TAZOBACTAM 2.25 GM in DEXTROSE 5% IN WATER 50 ML IV SCH ×2 (08:54→19:14)
[2016-10-29] MEDS: 0.9 % SODIUM CHLORIDE 1,000 ML IV SCH ×2 (08:56→23:07)
[2016-10-29] MEDS: CYANOCOBALAMIN 1,000 MCG/ML VIAL IM SCH (10:11)
[2016-10-29] MEDS: SODIUM BICARBONATE 650 MG TABLET PO SCH ×2 (10:11→21:33)
--- NOTE | 2016-10-29 14:34 | Internal Med Progress Note ---
Medical - PN: Subj Patient information: Note initiated : 10/29/16 at 2:22 pm Service Date, if different from initiated Date: [] Patient: Roland Moon 71 y/o M admitted on 10/26/16 for Blood Pressure Problem/ Sepsis, UTI. Chief Complaint: [] Interval history: Mr. Moon is a 71 year old Male with history of hypertension CKD, hydronephrosis in the past,bilateral stents in place, was sent to the ER from the nephrology clinic for evaluation of low blood pressure, tachycardia. The patient notes that he has had chronic weakness going on for the last few months, however, denies any other symptoms. In the [employer] office. The patient had a blood pressure systolic and 90, his heart rate is 140, Creat increased from 3.8-5.1. The patient underwent a chest x-ray which was reported as negative,ultrasound of the kidneys was negative, CT abdomen and pelvis without contrast was negative for retroperitoneal hematoma. Hydronephrosis or any other acute pathology. The patient was admitted to the hospital for further management. The patient denied any complaints like fever, chills cough, shortness of breath , burning urination, increased frequency of urination. Has a chronic indwelling DUCKWORTH catheter. He denied any symptoms of abdominal pain, nausea, vomiting, increased stoma output, hematuria or flank. Blood in the stoma.occult blood was positive. The last hemoglobin was 9.6 on 12.01 done in AUGUST, the patient was admitted to another facility to 3 months ago, but he also had anemia and was given some . Blood transfusions. He is not sure if he had an EGD scope or a colonoscopy. The patient has a history of colon cancer, status post Hemicolectomy,he has a ostomy in place. These underwent radiation therapy after surgery. 10/27: Pt seen examined, no acute overnight events, s/p 2 units prbc, hb stable this AM, s/p EGD revealed gastritis small erosions and one AVM, no active bleeding. Patient had a pICC placed for IV access yesterday. He denied any acute issue labs reviewed, 10/28: Pt seen examined, chart reviwed, no acute events, pt doing well this AM, still has some fatigue, but no other acute issues, left leg is a bit numb, but he is able to walk on it, move it, leg feels warm, pulses present. His labs reviewed, Creat is improving at 4.0, his bicarb dropped despite being on oral bicarb. Hb dropped to 8, no reported bleeding. Vit b12 is low, plan to replace IM for now. albumin is 1.4, pt not happy with the meal choices offered on a renal diet, he is on nepro supplement. 10/29: Pt seen examined, no acute issues overnight, labs reviewd, bicrab is normal , d/c bicarb drip and start on saline IVF. Monitor . H/H stable, hb 8.8, on Vit B12 supplements or now. patient denies any acute issues Blood cx positive for pseudomonas, Urine cx positive for pseudomonas, and klebsiella. Will monitor for now. Pertinent ROS: Denies headache, dizziness Denies chest pain, palpitations Denies cough or shortness of breath Denies abdominal pain, nausea or vomiting. - Constitutional Vitals: Vital Signs Temp Pulse Resp BP Pulse Ox 98.6 F 93 H 21 100/66 96 10/29/16 12:01 10/29/16 08:01 10/29/16 12:40 10/29/16 12:01 10/29/16 08:01 Period Temp Pulse Resp BP Sys/De Luna Pulse Ox Last 24 Hr 98.1 F-99.1 F 32-102 12-31 88-120/53-75 96-99 Intake and Output 10/29/16 10/29/16 10/29/16 05:59 13:59 21:59 Intake Total 250 / 250 210 / 210 Output Total 595 / 595 Balance -345 / -345 210 / 210 Intake & Output: Intake & Output 10/29/16 10/29/16 10/29/16 05:59 13:59 21:59 Intake Total 250 / 250 210 / 210 Output Total 595 / 595 Balance -345 / -345 210 / 210 Intake: IV 50 / 50 Zosyn 2.25 gm In Dextrose 50 / 50 5% in Water 50 ml @ 100 mls/hr IV Q12H [facility] Rx#: [id number] Oral 250 / 250 160 / 160 Output: Urine Catheter Amount 595 / 595 Stool 0 / 0 Other: Meal Breakfast Percent of Meal Consumed 75% Exam: Constitutional; Afebrile, cooperative, alert, not in distress. Eyes- No icterus, , No periorbital swelling Ears- Ext ear normal, hearing normal to conversation. Neck- Midline trachea, supple Respiratory system: Air Entry equal on both sides, No crackles or wheezing, no rhonchi. CVS- Rate rhythm regular, S1,S2 heard, no gallop, no rub. Abdomen- Soft nontender abdomen, no organomegaly, no tenderness, no guarding or rigidity, SLATE PICKER- AOOx3, moving all extremities, no gross focal deficit noted. Medical - PN: Obj Da - Labs CBC & Chem 7: 10/29/16 03:24 10/29/16 03:24 Labs: Abnormal Lab Results 10/29/16 10/29/16 10/28/16 03:24 03:24 11:30 WBC 11.8 H RBC 3.03 L Hgb 8.8 L Hct 26.8 L RDW 17.8 H MPV 6.6 L Gran % 81.3 H Lymph % (Auto) 11.7 L Gran # 9.6 H Lymph # (Auto) 1.4 L Seg Neutrophils % Lymphocytes % RBC Morphology Anisocytosis Potassium Chloride 110 H Carbon Dioxide 15 L BUN 39 H 45 H Creatinine 3.9 H 4.0 H Glucose 145 H Calcium 7.2 L 7.5 L Phosphorus Total Protein 4.2 L Albumin 1.7 L Albumin/Globulin Ratio 0.7 L 10/28/16 10/28/16 10/28/16 11:30 04:13 04:13 WBC 13.7 H 11.6 H RBC 2.99 L 2.79 L Hgb 8.8 L 8.0 L Hct 26.9 L 24.8 L RDW 17.8 H 17.6 H MPV 6.8 L 6.7 L Gran % 83.0 H Lymph % (Auto) 9.5 L Gran # 9.6 H Lymph # (Auto) 1.1 L Seg Neutrophils % 87 H Lymphocytes % 5 L RBC Morphology Abnorm A Anisocytosis 1+ A Potassium 3.2 L Chloride 111 H Carbon Dioxide 15 L BUN 43 H Creatinine 4.0 H Glucose Calcium 6.8 L Phosphorus Total Protein 3.7 L Albumin 1.4 L Albumin/Globulin Ratio 0.6 L 10/27/16 10/27/16 10/27/16 05:30 05:20 01:45 WBC 14.9 H 13.6 H RBC 3.10 L 2.43 L Hgb 9.1 L 7.1 L Hct 27.6 L 21.9 L RDW 16.5 H 16.9 H MPV 6.9 L 6.8 L Gran % 84.5 H Lymph % (Auto) 7.3 L Gran # 12.5 H Lymph # (Auto) 1.1 L Seg Neutrophils % 85 H Lymphocytes % 6 L RBC Morphology Abnorm A Anisocytosis 1+ A Potassium Chloride Carbon Dioxide 17 L BUN 54 H Creatinine 4.6 H Glucose Calcium 7.5 L Phosphorus 5.5 H Total Protein 4.5 L Albumin 1.8 L Albumin/Globulin Ratio 0.7 L Meds: Medications Acetaminophen (Tylenol) 650 mg PO Q4-6HP PRN PRN Reason: PAIN/FEVER > 101 Last Admin: 10/27/16 16:56 Dose: 650 mg Albuterol/Ipratropium (Duoneb) 3 ml NEB Q6HRT PRN PRN Reason: Shortness Of Breath Or Wheezing Cyanocobalamin (Vitamin B12) 1,000 mcg IM DAILY [facility] Stop: 11/03/16 09:01 Last Admin: 10/29/16 10:11 Dose: 1,000 mcg Heparin Sodium (Porcine) (Heparin Flush) 2 ml IV Q12 [facility] Last Admin: 10/29/16 08:52 Dose: 2 ml Hydromorphone HCl (Dilaudid) 0.5 mg IV Q2HP PRN PRN Reason: Pain Last Admin: 10/26/16 20:49 Dose: 0.5 mg Piperacillin Sod/Tazobactam (Sod 2.25 gm/ Dextrose) 50 mls @ 100 mls/hr IV Q12H [facility] Last Infusion: 10/29/16 09:28 Dose: Infused Sodium Chloride (Sodium Chloride 0.9%) 1,000 mls @ 84 mls/hr IV .[id number] [facility] Last Admin: 10/29/16 08:56 Dose: 84 mls/hr Naloxone HCl (Narcan) 0.1 mg IV Q2MIN PRN PRN Reason: Opiate Reversal Ondansetron HCl (Zofran) 4 mg IV Q4-6HP PRN PRN Reason: Nausea And Vomiting Pantoprazole Sodium (Protonix) 40 mg IV BIDAC [facility] Last Admin: 10/29/16 08:51 Dose: 40 mg Sodium Bicarbonate (Sodium Bicarbonate) 1,300 mg PO BID [facility] Last Admin: 10/29/16 10:11 Dose: 1,300 mg Sodium Chloride (Saline Flush) 10 ml IV Q8 [facility] Last Admin: 10/29/16 05:21 Dose: Not Given Sodium Chloride (Saline Flush) 10 ml IV UD PRN PRN Reason: FLUSH Medical - PN: A/P - Time Spent With Patient Total time spent is greater than 50% in coordination of care (as documented) at patient's floor/unit and/or counseling patient: - Narrative A/P Narrative: Assessment/ Plan Sepsis: sepsis improving, wbc trending down bp still soft , UTI: IV zosyn for UTI, urine culture is growing Pseudomonas and klebsiella, duckworth changed. pseudomonas sensitive to zosyn, sensitivites for klebsiella pending. Blood culture also positive for pseudomonas Severe Anemia duet o chr blood loss and renal failure.: s/p 2 units, hb 8.8 stable, on Vitamin B12 supplements. MOnitor. GI consult appreciated, s/p EGD and cautry of AVM, multiple small erosions noted. continue PPI Acute on Chr renal failure: renal function better, stable, patient on 24 hr urine creatinine HTN: Bp stable hold home meds for now. Acidosis, hagma and nagma: started on sodium bicarbonate, and IV bicarb, bicarb is 22 today, d/c bicarb drip and continue po bicarb supplements. Severe malnutrition: Albumin is 1.7, on renal diet with nephro, Hypokalemia : K 3.6 today, continue to monitor, give one 40meq dose today. Hypocalcemia: calcium low, but ok if corrected for low albumin. DVT SCD Diet renal with nepro Full code. Medical - PN: Qual - VTE Deep Vein Thrombosis/Pulmonary Embolism Present on Admission: No
[2016-10-29 15:15] LABS: Vancomycin,Random 10.7 ug/ml
[2016-10-29] MEDS: CIPROFLOXACIN 400 MG/200 ML BAG IV SCH (20:13)
[2016-10-30] MEDS ORDERED: PIPERACILLIN SODIUM/TAZOBACTAM 2.25 GM VIAL IV ONE (01:39)
[2016-10-30] MEDS: PIPERACILLIN SODIUM/TAZOBACTAM 2.25 GM in DEXTROSE 5% IN WATER 50 ML IV SCH ×3 (02:06→17:32)
[2016-10-30] MEDS ORDERED: 0.9 % SODIUM CHLORIDE 250 ML IV ONE (04:21)
[2016-10-30 05:32] LABS: Basophils # (Auto) 0 K/mcL (0.0-0.3); Basophils % (Auto) 0.2 % (0.0-2.0); Eosinophils # (Auto) 0.3 K/mcL (0.0-0.7); Eosinophils % (Auto) 2.7 % (0.0-7.0); Granulocytes % (Auto) 81.2 % (38.0-78.0); Lymphocytes # (Auto) 1.4 K/mcL (1.5-4.8); Lymphocytes % (Auto) 12.3 % (15.5-49.0); Mean Cell Volume 90.3 fL (80.0-100.0); Mean Corpuscular HGB Conc 32.7 g/dL (31.0-36.0); Mean Corpuscular Hemoglobin 29.5 pg (26.0-34.0); Monocytes # (Auto) 0.4 K/mcL (0.1-0.9); Monocytes % (Auto) 3.6 % (1.0-12.0); Platelet Count 354 K/mcL (140-440); RBC 2.93 M/mcL (4.50-5.90); Red Cell Distribution Width 17.7 % (11.5-14.5)
[2016-10-30 05:41] LABS: ALT/SGPT < 5 U/l (0-40); Albumin 1.4 gm/dL (3.2-5.2); Albumin/Globulin Ratio 0.5 (1.0-2.3); Alkaline Phosphatase 78 U/L (39-117); Bilirubin,Direct < 0.2 mg/dL (0.0-0.3); Blood Urea Nitrogen 35 mg/dl (8-23); Gamma Glutamyl Transpeptidase 28 U/L (8-61); Magnesium 1.5 mg/dL (1.6-2.5); Uric Acid 3.1 mg/dL (2.5-8.0)
[2016-10-30] MEDS: 0.9 % SODIUM CHLORIDE 10 ML SYRINGE IV SCH ×3 (05:50→20:47)
[2016-10-30 05:53] LABS: Urine Creatinine 33.1 mg/dL
[2016-10-30] MEDS: PANTOPRAZOLE 40 MG VIAL IV SCH ×2 (08:00→17:34)
[2016-10-30] MEDS: SODIUM BICARBONATE 650 MG TABLET PO SCH ×2 (09:00→20:47)
[2016-10-30] MEDS: CIPROFLOXACIN 400 MG/200 ML BAG IV SCH (11:16)
[2016-10-30] MEDS: 0.9 % SODIUM CHLORIDE 1,000 ML IV SCH ×2 (11:29→20:38)
[2016-10-30] MEDS: CYANOCOBALAMIN 1,000 MCG/ML VIAL IM SCH (11:40)
--- NOTE | 2016-10-30 12:16 | Surgical Pathology Report ---
HISTOLOGY SPECIMEN MICROSCOPIC DIAGNOSIS STOMACH, PYLORUS, RANDOM, BIOPSY: -- CHRONIC GASTRITIS, MILD, WITHOUT ACTIVITY. -- NO HELICOBACTER ORGANISMS IDENTIFIED ON ALCIAN YELLOW STAIN (ADEQUATE TECHNICAL CONTROL). (DMT:divya) CLINICAL HISTORY History of colon cancer S/P colectomy and ilestomy bag; hemeoccult positive black stools. PROCEDURAL IMPRESSION Mild gastritis with small erosions, rule out H. pylori. GROSS DESCRIPTION Received in formalin labeled random pyloric biopsy, are four fragments of drake tissue ranging in size from 0.3 to 0.5 cm. Totally submitted - one cassette. (KGW:sln) Electronically Signed by: Sanjay Barragan M.D.
--- NOTE | 2016-10-30 14:53 | Ultrasound Report ---
CLINICAL INFORMATION: Edema and pain COMPARISON: None. FINDINGS: The entire deep venous system including the common femoral, superficial femoral, popliteal and paired trifurcation calf veins are easily compressible and show normal venous blood flow on color and spectral Doppler. No evidence of thrombus IMPRESSION: Negative exam - no evidence of deep vein thrombosis. Interpreted and Authenticated by: Jack Bautista 10/30/16
--- NOTE | 2016-10-30 16:33 | Nephrology Progress Note ---
Subjective Patient information: Note initiated : 10/30/16 at 4:31 pm Service Date, if different from initiated Date: [] Patient: Roland Moon 71 y/o M admitted on 10/26/16 for Blood Pressure Problem/ Sepsis, UTI. Chief Complaint: [] Principal diagnosis: sepsis, Acute on chronic renal failure Interval history: patient is feeling somewhat better no nausea, vomiting eating a little better elysia radha, no SOB No CP still bacteremic but white count trending down Pertinent ROS: as noted above Objective - Vital Signs Vital signs: Vital Signs Temp Pulse Pulse Resp BP Pulse Ox 10/30/16 16:07 16 10/30/16 16:01 97.5 F 17 100/72 96 10/30/16 15:17 16 10/30/16 15:01 18 109/75 10/30/16 14:48 10 L 10/30/16 14:01 13 116/71 10/30/16 13:01 17 112/70 10/30/16 12:29 13 10/30/16 12:01 97.4 F 15 106/70 95 10/30/16 11:04 17 99/69 10/30/16 10:36 15 98/47 10/30/16 10:20 19 10/30/16 10:01 21 82/59 10/30/16 09:01 13 113/73 10/30/16 08:01 16 106/72 10/30/16 07:07 88 8 L 122/70 100 10/30/16 07:01 91 H 17 51/38 100 10/30/16 06:01 82 19 93/67 89 L 10/30/16 06:00 81 19 96 10/30/16 05:54 90 14 100 10/30/16 05:53 87 14 100 10/30/16 05:01 83 18 94/64 98 10/30/16 04:01 98.4 F 86 19 95/64 99 10/30/16 03:18 86 16 97 10/30/16 03:01 87 17 98/67 98 10/30/16 02:37 88 19 100 10/30/16 02:01 86 20 95/68 98 10/30/16 01:22 87 14 97 10/30/16 01:01 84 17 98/65 97 10/30/16 00:45 81 97 10/30/16 00:14 76 25 H 100 08/07/17 00:01 98.9 F 77 19 93/61 100 10/29/16 23:04 82 15 99 10/29/16 23:01 81 19 97/65 100 10/29/16 22:17 80 19 100 10/29/16 22:01 79 18 94/69 100 10/29/16 21:08 82 17 100 10/29/16 21:01 86 20 94/66 100 10/29/16 20:36 91 H 14 100 10/29/16 20:01 97.8 F 86 19 95/65 99 10/29/16 19:01 11 L 121/79 10/29/16 18:40 104 H 100 10/29/16 18:01 0 L 103/67 10/29/16 17:01 12 122/71 Intake and Output 10/30/16 10/30/16 10/30/16 05:59 13:59 21:59 Intake Total 1300 / 1300 1347 / 1347 Output Total 430 / 430 110 / 110 Balance 870 / 870 1237 / 1237 Intake: IV 1250 / 1250 1107 / 1107 Sodium Chloride 0.9% 1, 1000 / 1000 1000 / 1000 000 ml @ 84 mls/hr IV . [id number] [facility] Rx#:[id number] Oral 50 / 50 240 / 240 Output: Urine Catheter Amount 430 / 430 110 / 110 Other: # Bowel Movements 0 0 Intake & Output: Intake & Output 10/30/16 10/30/16 10/30/16 05:59 13:59 21:59 Intake Total 1300 / 1300 1347 / 1347 Output Total 430 / 430 110 / 110 Balance 870 / 870 1237 / 1237 Intake: IV 1250 / 1250 1107 / 1107 Sodium Chloride 0.9% 1, 1000 / 1000 1000 / 1000 000 ml @ 84 mls/hr IV . [id number] [facility] Rx#:[id number] Oral 50 / 50 240 / 240 Output: Urine Catheter Amount 430 / 430 110 / 110 Other: # Bowel Movements 0 0 - General Appearance General appearance: appears started age, cachectic, chronically ill EENT: mucous membranes moist Neck: no JVD Respiratory: clear Cardiology: no rub, no edema, normal S1, normal S2 Gastrointestinal: tenderness (in right upper quadrant ), no guarding Integumentary: no rash, warm and dry Neurologic: no focal deficit, alert and oriented x3 Musculoskeletal: no erythema, no cyanosis Psychiatric: mood/affect appropriate - Lab 10/30/16 03:30 10/30/16 03:30 Most recent lab results Calcium 7.3 mg/dl (8.6-10.4) L 10/30/16 03:30 Phosphorus 3.8 mg/dL (2.7-4.5) 10/30/16 03:30 Magnesium 1.5 mg/dL (1.6-2.5) L 10/30/16 03:30 Urine Creatinine 33.1 mg/dL 10/29/16 04:19 Assessment and Plan (1) Acute on chronic renal failure s.creatinine down to 3.6 24 hour urinary analysis shows creatinine clearance of only 5ml/min discussed with the pt, he is refusing dialysis, he will think about this, no emergent need if no meaningful improvement in renal function will need to address goals of care no hyperkalemia, bicarb better at 21 on supplement Anemia: Hb stable at 8.8, on b12 injections, will monitor UTI/ gram negative bacteremia: on antibiotics, UC shows pseudomonas, one isolate is intermediate sensitive to ciprofloxacin on dual antibiotics discussed with his urologist in [place], [place], she did state that she does not think patient needs any urgent urological intervention given stents to be relatively new and no s/o obstruction the patient may have benefitted from urinary diversion.radical surgeries but he is not a candidate given his current medical condition high risk for perioperative mortality, she has discussed this is urology oncosurgeon up there I have requested Dr Romero to see the patient to see if anything else we can do we will continue with the antibiotics and follow daily blood cultures until negative if no improvement will need to be transferred to a facility where ID specialty is available malnutrition: very poor appetite, does not eat much, will have him only on low sodium diet and see if he can eat some more overall poor prognosis given recurrent nature of his infections Status: Acute
--- NOTE | 2016-10-30 16:44 | Ultrasound Report ---
CLINICAL INFORMATION: Urinary tract infection. Bilateral ureteral stents COMPARISON: Abdomen and pelvic CT from 10/26/2016 and renal ultrasound dated 317 FINDINGS: Both kidneys are normal in size, position and configuration: The right is 10.4 x 5 cm and the left is 11.4 x 5.5 cm. The renal parenchyma is mildly echogenic compatible with medical renal disease. Moderate bilateral hydronephrosis present due to clamping of the Diego. Bilateral ureteral catheters are in stable satisfactory position. Urinary bladder volume 150 cc. There is mild diffuse urinary bladder wall thickening and trabeculation. No focal bladder lesion IMPRESSION: 1. Bilateral echogenic kidneys, compatible with medical renal disease 2. Moderate bilateral hydronephrosis due to clamping of the Diego catheter in the urinary bladder. 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 3. Diffuse wall thickening of the urinary bladder suggesting chronic bladder outlet obstruction Interpreted and Authenticated by: Jack Bautista 10/30/16
--- NOTE | 2016-10-30 18:32 | Internal Med Progress Note ---
Medical - PN: Subj Patient information: Note initiated : 10/30/16 at 6:29 pm Service Date, if different from initiated Date: [] Patient: Roland Moon 71 y/o M admitted on 10/26/16 for Blood Pressure Problem/ Sepsis, UTI. Chief Complaint: [] Interval history: Mr. Moon is a 71 year old Male with history of hypertension CKD, hydronephrosis in the past,bilateral stents in place, was sent to the ER from the nephrology clinic for evaluation of low blood pressure, tachycardia. The patient notes that he has had chronic weakness going on for the last few months, however, denies any other symptoms. In the assistant office. The patient had a blood pressure systolic and 90, his heart rate is 140, Creat increased from 3.8-5.1. The patient underwent a chest x-ray which was reported as negative,ultrasound of the kidneys was negative, CT abdomen and pelvis without contrast was negative for retroperitoneal hematoma. Hydronephrosis or any other acute pathology. The patient was admitted to the hospital for further management. The patient denied any complaints like fever, chills cough, shortness of breath , burning urination, increased frequency of urination. Has a chronic indwelling JERONIMO catheter. He denied any symptoms of abdominal pain, nausea, vomiting, increased stoma output, hematuria or flank. Blood in the stoma.occult blood was positive. The last hemoglobin was 9.6 on 12.01 done in AUGUST, the patient was admitted to another facility to 3 months ago, but he also had anemia and was given some . Blood transfusions. He is not sure if he had an EGD scope or a colonoscopy. The patient has a history of colon cancer, status post Hemicolectomy,he has a ostomy in place. These underwent radiation therapy after surgery. 10/27: Pt seen examined, no acute overnight events, s/p 2 units prbc, hb stable this AM, s/p EGD revealed gastritis small erosions and one AVM, no active bleeding. Patient had a pICC placed for IV access yesterday. He denied any acute issue labs reviewed, 10/28: Pt seen examined, chart reviwed, no acute events, pt doing well this AM, still has some fatigue, but no other acute issues, left leg is a bit numb, but he is able to walk on it, move it, leg feels warm, pulses present. His labs reviewed, Creat is improving at 4.0, his bicarb dropped despite being on oral bicarb. Hb dropped to 8, no reported bleeding. Vit b12 is low, plan to replace IM for now. albumin is 1.4, pt not happy with the meal choices offered on a renal diet, he is on nepro supplement. 10/29: Pt seen examined, no acute issues overnight, labs reviewd, bicrab is normal , d/c bicarb drip and start on saline IVF. Monitor . H/H stable, hb 8.8, on Vit B12 supplements or now. patient denies any acute issues Blood cx positive for pseudomonas, Urine cx positive for pseudomonas, and klebsiella. Will monitor for now. 10/30: patient seen and examined, no acute overnight events, patient's labs remained stable, his microbiology was positive for Pseudomonas,Pseudomonas is pansensitive and the urine, and the blood. It has shown intermediate resistance to ciprofloxacin. The patient's Klebsiella is multidrug resistant but sensitive to Zosyn and imipenem. At this time, the patient's renal function remained stable His creatinine clearance is. 5. The patient is bacteremic despite being on antibiotics. We have consulted Dr. milan evaluated the patient and recommended a stent exchange and bladder catheter exchange. We will continue with antibiotics, Zosyn and ciprofloxacin. Repeat blood cultures ordered again today. The patient remains persistently bacteremic. the patient will be transferred to a referral center where infectious disease consult is available. Pertinent ROS: Denies headache, dizziness Denies chest pain, palpitations Denies cough or shortness of breath Denies abdominal pain, nausea or vomiting. - Constitutional Vitals: Vital Signs Temp Pulse Resp BP Pulse Ox 97.5 F 88 15 115/61 98 10/30/16 16:01 10/30/16 07:07 10/30/16 18:11 10/30/16 18:11 10/30/16 18:11 Period Temp Pulse Resp BP Sys/De Luna Pulse Ox Last 24 Hr 97.4 F-98.9 F 76-104 8-25 51-122/38-79 89-100 Intake and Output 10/30/16 10/30/16 10/30/16 05:59 13:59 21:59 Intake Total 1300 / 1300 1397 / 1397 250 / 250 Output Total 430 / 430 110 / 110 400 / 400 Balance 870 / 870 1287 / 1287 -150 / -150 Intake & Output: Intake & Output 10/30/16 10/30/16 10/30/16 05:59 13:59 21:59 Intake Total 1300 / 1300 1397 / 1397 250 / 250 Output Total 430 / 430 110 / 110 400 / 400 Balance 870 / 870 1287 / 1287 -150 / -150 Intake: IV 1250 / 1250 1157 / 1157 Sodium Chloride 0.9% 1, 1000 / 1000 1000 / 1000 000 ml @ 84 mls/hr IV . [id number] CAROLYN Rx#:[id number] Zosyn 2.25 gm In Dextrose 50 / 50 5% in Water 50 ml @ 100 mls/hr IV Q8H CAROLYN Rx#: [id number] Oral 50 / 50 240 / 240 250 / 250 Output: Urine Catheter Amount 430 / 430 110 / 110 400 / 400 Other: Meal Dinner Percent of Meal Consumed 25% Feeding Ability Assist with Tray Set Up # Bowel Movements 0 0 Exam: Constitutional; Afebrile, cooperative, alert, not in distress. Eyes- No icterus, , No periorbital swelling Ears- Ext ear normal, hearing normal to conversation. Neck- Midline trachea, supple Respiratory system: Air Entry equal on both sides, No crackles or wheezing, no rhonchi. CVS- Rate rhythm regular, S1,S2 heard, no gallop, no rub. Abdomen- Soft nontender abdomen, no organomegaly, no tenderness, no guarding or rigidity, ostomy in place. 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 Medical - PN: Obj Da - Labs CBC & Chem 7: 10/30/16 03:30 10/30/16 03:30 Labs: Abnormal Lab Results 10/30/16 10/30/16 10/29/16 03:30 03:30 04:20 WBC 11.1 H RBC 2.93 L Hgb 8.6 L Hct 26.4 L RDW 17.7 H MPV 6.8 L Gran % 81.2 H Lymph % (Auto) 12.3 L Gran # 9.0 H Lymph # (Auto) 1.4 L Seg Neutrophils % Lymphocytes % RBC Morphology Anisocytosis Potassium Chloride Carbon Dioxide 21 L BUN 35 H Creatinine 3.7 H Glucose Calcium 7.3 L Magnesium 1.5 L Total Protein 4.1 L Albumin 1.4 L Albumin/Globulin Ratio 0.5 L Ur Creatinine 24 Hour Creatinine Clearance Ur Urea Nitrogen 24 Hr 2.6 L 10/29/16 10/29/16 10/29/16 04:19 03:24 03:24 WBC 11.8 H RBC 3.03 L Hgb 8.8 L Hct 26.8 L RDW 17.8 H MPV 6.6 L Gran % 81.3 H Lymph % (Auto) 11.7 L Gran # 9.6 H Lymph # (Auto) 1.4 L Seg Neutrophils % Lymphocytes % RBC Morphology Anisocytosis Potassium Chloride Carbon Dioxide BUN 39 H Creatinine 3.7 H 3.9 H Glucose Calcium 7.2 L Magnesium Total Protein 4.2 L Albumin 1.7 L Albumin/Globulin Ratio 0.7 L Ur Creatinine 24 Hour 0.4 L Creatinine Clearance 5 L Ur Urea Nitrogen 24 Hr 10/28/16 10/28/16 10/28/16 11:30 11:30 04:13 WBC 13.7 H RBC 2.99 L Hgb 8.8 L Hct 26.9 L RDW 17.8 H MPV 6.8 L Gran % Lymph % (Auto) Gran # Lymph # (Auto) Seg Neutrophils % 87 H Lymphocytes % 5 L RBC Morphology Abnorm A Anisocytosis 1+ A Potassium 3.2 L Chloride 110 H 111 H Carbon Dioxide 15 L 15 L BUN 45 H 43 H Creatinine 4.0 H 4.0 H Glucose 145 H Calcium 7.5 L 6.8 L Magnesium Total Protein 3.7 L Albumin 1.4 L Albumin/Globulin Ratio 0.6 L Ur Creatinine 24 Hour Creatinine Clearance Ur Urea Nitrogen 24 Hr 10/28/16 04:13 WBC 11.6 H RBC 2.79 L Hgb 8.0 L Hct 24.8 L RDW 17.6 H MPV 6.7 L Gran % 83.0 H Lymph % (Auto) 9.5 L Gran # 9.6 H Lymph # (Auto) 1.1 L Seg Neutrophils % Lymphocytes % RBC Morphology Anisocytosis Potassium Chloride Carbon Dioxide BUN Creatinine Glucose Calcium Magnesium Total Protein Albumin Albumin/Globulin Ratio Ur Creatinine 24 Hour Creatinine Clearance Ur Urea Nitrogen 24 Hr Meds: Medications Acetaminophen (Tylenol) 650 mg PO Q4-6HP PRN PRN Reason: PAIN/FEVER > 101 Last Admin: 10/27/16 16:56 Dose: 650 mg Albuterol/Ipratropium (Duoneb) 3 ml NEB Q6HRT PRN PRN Reason: Shortness Of Breath Or Wheezing Cyanocobalamin (Vitamin B12) 1,000 mcg IM DAILY [facility] Stop: 11/03/16 09:01 Last Admin: 10/30/16 11:40 Dose: 1,000 mcg Heparin Sodium (Porcine) (Heparin Flush) 2 ml IV Q12 [facility] Last Admin: 10/30/16 11:39 Dose: 2 ml Hydromorphone HCl (Dilaudid) 0.5 mg IV Q2HP PRN PRN Reason: Pain Last Admin: 10/26/16 20:49 Dose: 0.5 mg Sodium Chloride (Sodium Chloride 0.9%) 1,000 mls @ 84 mls/hr IV .[id number] [facility] Last Admin: 10/30/16 11:29 Dose: 84 mls/hr Ciprofloxacin (Cipro) 400 mg in 200 mls @ 200 mls/hr IV DAILY [facility] Last Infusion: 10/30/16 11:48 Dose: 100 mls/hr Piperacillin Sod/Tazobactam (Sod 2.25 gm/ Dextrose) 50 mls @ 100 mls/hr IV Q8H [facility] Last Admin: 10/30/16 17:32 Dose: 100 mls/hr Naloxone HCl (Narcan) 0.1 mg IV Q2MIN PRN PRN Reason: Opiate Reversal Ondansetron HCl (Zofran) 4 mg IV Q4-6HP PRN PRN Reason: Nausea And Vomiting Pantoprazole Sodium (Protonix) 40 mg IV BIDAC [facility] Last Admin: 10/30/16 17:34 Dose: 40 mg Sodium Bicarbonate (Sodium Bicarbonate) 1,300 mg PO BID [facility] Last Admin: 10/30/16 09:00 Dose: 1,300 mg Sodium Chloride (Saline Flush) 10 ml IV Q8 [facility] Last Admin: 10/30/16 16:31 Dose: 10 ml Sodium Chloride (Saline Flush) 10 ml IV UD PRN PRN Reason: FLUSH Medical - PN: A/P - Time Spent With Patient Total time spent is greater than 50% in coordination of care (as documented) at patient's floor/unit and/or counseling patient: - Narrative A/P Narrative: Assessment/ Plan Sepsis: sepsis improving, wbc trending down bp still soft , UTI: IV zosyn for UTI, urine culture is growing Pseudomonas and klebsiella, jeronimo changed. pseudomonas sensitive to zosyn, sensitivites for klebsiella sensitive to zosyn. Blood culture also positive for pseudomonas on the , the cultures on 6th pending. Dr ansari to do stent exchange in AM Severe Anemia duet o chr blood loss and renal failure.: s/p 2 units, hb 8.8 stable, on Vitamin B12 supplements. MOnitor. GI consult appreciated, s/p EGD and cautry of AVM, multiple small erosions noted. continue PPI , no further bleeding noted. Acute on Chr renal failure: renal function better, stable, creat clearnce is 5 HTN: Bp stable hold home meds for now. Acidosis, hagma and nagma: due to renal failure, on PO bicarb supplements. Severe malnutrition: Albumin is 1.4, on renal diet with nephro, Hypokalemia : replace, and monitor. Hypocalcemia: calcium low, but ok if corrected for low albumin. DVT SCD Diet renal with nepro Full code. Medical - PN: Qual - VTE Deep Vein Thrombosis/Pulmonary Embolism Present on Admission: No
[2016-10-30] MEDS: ACETAMINOPHEN 325 MG TABLET PO PRN (18:55)
--- NOTE | 2016-10-30 20:04 | Consultation ---
DATE OF CONSULTATION: 10/30/2016 HISTORY OF PRESENT ILLNESS: The patient is a 71-year-old gentleman who was admitted to the hospital because of urosepsis and worsening renal failure. He also had tachycardia and low blood pressure. The patient has had a history of chronic weakness. In the past, has been noted to have a mass in his pelvis and this caused ureteral obstruction. He has had bilateral stents placed and a Diego catheter placed. He has been seeing Dr. King vogel in [place]. His last time the stents were changed was in June. He has been admitted to the hospital and they do show Pseudomonas and Klebsiella in his urine, also Gram negative Bacillus and Pseudomonas in his blood. There is concern that the stents may be infected and I have been asked to evaluate him. PAST MEDICAL HISTORY: Significant for gross hematuria, COPD, colon cancer, urinary obstruction, hypertension, edema, history of colon cancer, and a rectal mass. PAST SURGICAL HISTORY: A colostomy, radiation therapy for prostate cancer. CURRENT MEDICATIONS: As per dictated on his hospital chart. FAMILY HISTORY: Denies any history of prostate cancer. SOCIAL HISTORY: Lives in [place]. REVIEW OF SYSTEMS: A complete review of systems was reviewed and unchanged from that dictated by Dr. Robert on 10/27/2016. PHYSICAL EXAMINATION: GENERAL: This is acutely ill-appearing gentleman in no apparent distress. VITAL SIGNS: As noted per nurses' notes. HEENT: Atraumatic, normocephalic. Extraocular movements are intact. Pupils equal and reactive to light and accommodation. NECK: Supple. Trachea is in the midline. Mucosal __ are clear. LUNGS: Clear to auscultation. HEART: Regular rate and rhythm. ABDOMEN: Soft, nontender. He does have a left lower quadrant ostomy bag. GENITOURINARY: Scrotum without lesion. Diego catheter is in place. Penis is normal. RECTAL EXAM: Deferred. EXTREMITIES: Without clubbing, cyanosis or edema. NEUROLOGIC: 2-12 are grossly intact. PSYCHIATRIC: Slightly depressed behavior. LABORATORY EXAM: Please see the hospital chart. Again, laboratory does show Pseudomonas and Klebsiella infection. IMPRESSION: The patient with a pelvic mass which is being drained with a long-term Diego catheter. He does have an infection and it appears that the stents may be involved. I have talked to the patient about this and would remove both stents and replace these with fresh stents. Would also change his Diego catheter. I have talked to the patient about this and complications including bleeding, infection, pain, non-cure of the problem and he understands. Surgery will be scheduled tomorrow. DEYSI:dina Job ID: [id number] Doc ID: [id number] Darrick Romero MD
[2016-10-31] MEDS: PIPERACILLIN SODIUM/TAZOBACTAM 2.25 GM in DEXTROSE 5% IN WATER 50 ML IV SCH ×4 (02:18→20:16)
[2016-10-31] MEDS: 0.9 % SODIUM CHLORIDE 1,000 ML IV SCH ×4 (02:23→20:15)
[2016-10-31] MEDS: 0.9 % SODIUM CHLORIDE 10 ML SYRINGE IV SCH ×3 (05:29→20:15)
[2016-10-31 05:51] LABS: Basophils # (Auto) 0 K/mcL (0.0-0.3); Basophils % (Auto) 0.4 % (0.0-2.0); Eosinophils # (Auto) 0.3 K/mcL (0.0-0.7); Eosinophils % (Auto) 3.3 % (0.0-7.0); Granulocytes % (Auto) 77.5 % (38.0-78.0); Lymphocytes # (Auto) 1.1 K/mcL (1.5-4.8); Lymphocytes % (Auto) 13.7 % (15.5-49.0); Mean Cell Volume 90.6 fL (80.0-100.0); Mean Corpuscular HGB Conc 32.5 g/dL (31.0-36.0); Mean Corpuscular Hemoglobin 29.4 pg (26.0-34.0); Monocytes # (Auto) 0.4 K/mcL (0.1-0.9); Monocytes % (Auto) 5.1 % (1.0-12.0); Platelet Count 284 K/mcL (140-440); RBC 2.55 M/mcL (4.50-5.90); Red Cell Distribution Width 17.6 % (11.5-14.5)
[2016-10-31 06:13] LABS: ALT/SGPT < 5 U/l (0-40); Albumin 1.5 gm/dL (3.2-5.2); Albumin/Globulin Ratio 0.7 (1.0-2.3); Alkaline Phosphatase 72 U/L (39-117); Bilirubin,Direct < 0.2 mg/dL (0.0-0.3); Blood Urea Nitrogen 27 mg/dl (8-23); Gamma Glutamyl Transpeptidase 30 U/L (8-61); Magnesium 1.3 mg/dL (1.6-2.5); Uric Acid 2.9 mg/dL (2.5-8.0)
[2016-10-31] MEDS ORDERED: MAGNESIUM SULFATE 2 GM/50 ML BAG IV ONE (06:59)
[2016-10-31 07:53] LABS: Mean Cell Volume 89.9 fL (80.0-100.0); Mean Corpuscular HGB Conc 32.2 g/dL (31.0-36.0); Platelet Count 331 K/mcL (140-440); RBC 3.01 M/mcL (4.50-5.90)
[2016-10-31] MEDS: SODIUM BICARBONATE 650 MG TABLET PO SCH ×2 (08:08→20:14)
[2016-10-31 08:10] LABS: Blood Urea Nitrogen 30 mg/dl (8-23)
[2016-10-31] MEDS: PANTOPRAZOLE 40 MG VIAL IV SCH ×2 (08:23→18:14)
[2016-10-31] MEDS: CYANOCOBALAMIN 1,000 MCG/ML VIAL IM SCH (08:23)
[2016-10-31] MEDS: CIPROFLOXACIN 400 MG/200 ML BAG IV SCH (08:27)
[2016-10-31] MEDS ORDERED: POTASSIUM CHLORIDE 40 MEQ in DEXTROSE 5% IN WATER 250 ML IV ONE ×2 (09:00→11:00)
[2016-10-31] MEDS ORDERED: PROPOFOL 200 MG/20 ML VIAL IV ONE (09:50)
[2016-10-31] MEDS ORDERED: LIDOCAINE HCL/PF 100 MG/5 ML SYRINGE IV ONE (09:50)
[2016-10-31] MEDS ORDERED: DEXAMETHASONE 10 MG/ML VIAL IV ONE (09:50)
[2016-10-31] MEDS ORDERED: PHENYLEPHRINE 10 MG/ML VIAL IV ONE (09:50)
[2016-10-31] MEDS ORDERED: MIDAZOLAM 5 MG/5 ML VIAL IV ONE (09:50)
[2016-10-31] MEDS ORDERED: ONDANSETRON 4 MG/2 ML VIAL IV ONE (09:50)
[2016-10-31] MEDS ORDERED: fentaNYL 100 MCG/2 ML VIAL IV ONE (09:50)
[2016-10-31] MEDS ORDERED: NALOXONE HCL 0.4 MG/ML VIAL IV PRN ×2 (09:57→10:07)
[2016-10-31] MEDS ORDERED: ONDANSETRON 4 MG/2 ML VIAL IV PRN ×2 (09:57→10:07)
[2016-10-31] MEDS ORDERED: diphenhydrAMINE 50 MG/ML VIAL IV PRN (09:57)
[2016-10-31] MEDS ORDERED: LACTATED RINGERS 250 ML IV PRN (09:57)
[2016-10-31] MEDS ORDERED: FLUMAZENIL 0.1 MG/ML ML IV PRN (09:57)
[2016-10-31] MEDS ORDERED: fentaNYL 100 MCG/2 ML VIAL IV PRN (09:57)
[2016-10-31] MEDS ORDERED: BENZOCAINE/MENTHOL 1 LOZENGE PO PRN (09:57)
[2016-10-31] MEDS ORDERED: IPRATROPIUM/ALBUTEROL 3 ML AMPUL.NEB NEB PRN ×2 (09:57→10:07)
[2016-10-31] MEDS ORDERED: MEPERIDINE 25 MG/ML SYRINGE IV PRN (09:57)
[2016-10-31] MEDS ORDERED: LACTATED RINGERS 1,000 ML IV SCH (10:00)
[2016-10-31] MEDS ORDERED: ACETAMINOPHEN 325 MG TABLET PO PRN (10:07)
[2016-10-31] MEDS ORDERED: HYDROmorphone 2 MG/ML SYRINGE IV PRN (10:07)
[2016-10-31] MEDS ORDERED: VANCOMYCIN 500 MG in 0.9 % SODIUM CHLORIDE 100 ML IV ONE (10:07)
[2016-10-31] MEDS ORDERED: 0.9 % SODIUM CHLORIDE 10 ML SYRINGE IV PRN (10:07)
--- NOTE | 2016-10-31 10:13 | Brief Operative Note ---
Date of procedure: 10/31/16 Pre-op diagnosis: recurrent infections Post-op diagnosis: same Procedure: arpita stent change, duckworth change Grafts/Implants: Yes (stents) Anesthesia: GLMA Findings: see note Complications: none Surgeon: Darrick Romero Specimens Removed/Pathology: none sent Condition: stable Disposition: PACU
--- NOTE | 2016-10-31 11:02 | Operative Note ---
DATE OF OPERATION: 10/31/2016 PREOPERATIVE DIAGNOSIS: Recurrent urinary infections. POSTOPERATIVE DIAGNOSIS: Recurrent urinary infections PROCEDURE PERFORMED: Bilateral stent change and Diego catheter placement. SURGEON: Darrick Romero MD INDICATION: The patient is a 71-year-old gentleman who has had radiation to the pelvis. He has developed recurrent urinary infections. He does have ureteral blockage and stents are present. These were last changed in June of this year. He has a Klebsiella that we cannot clear and he presents now for stent change. PROCEDURE IN DETAIL: The patient was identified and consent was signed. He was given general anesthesia, placed in lithotomy position, and prepped and draped in a standard fashion. Diego catheter was removed and cystourethroscopy was performed. The urethra appeared normal. In entering the bladder, there was necrotic tissue present from previous radiation and also two stents seen exiting the ureteral orifices. These were on the anterior wall of the bladder. At this point, I was able to grasp the left stent and bring this out through the penis. A wire was then passed up in the kidney and a fresh 6 x 26 stent was placed. This had a good curl in the kidney and the bladder. The procedure was then repeated on the right side. Again, there was a good curl in the kidney and the bladder. We irrigated the bladder free, placed an 18 [place] Diego catheter and the patient was awoken and taken to recovery room in stable condition. He tolerated the procedure well. There was no blood loss. RZ:melissa Job ID: [id number] Doc ID: [id number] Darrick Romero MD
--- NOTE | 2016-10-31 14:56 | Internal Med Progress Note ---
Medical - PN: Subj Patient information: Note initiated : 10/31/16 at 2:52 pm Service Date, if different from initiated Date: [] Patient: Roland Moon 71 y/o M admitted on 10/26/16 for Blood Pressure Problem/ Sepsis, UTI. Chief Complaint: [] Interval history: Mr. Moon is a 71 year old Male with history of hypertension CKD, hydronephrosis in the past,bilateral stents in place, was sent to the ER from the nephrology clinic for evaluation of low blood pressure, tachycardia. The patient notes that he has had chronic weakness going on for the last few months, however, denies any other symptoms. 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 The patient had a blood pressure systolic and 90, his heart rate is 140, Creat increased from 3.8-5.1. The patient underwent a chest x-ray which was reported as negative,ultrasound of the kidneys was negative, CT abdomen and pelvis without contrast was negative for retroperitoneal hematoma. Hydronephrosis or any other acute pathology. The patient was admitted to the hospital for further management. The patient denied any complaints like fever, chills cough, shortness of breath , burning urination, increased frequency of urination. Has a chronic indwelling JERONIMO catheter. He denied any symptoms of abdominal pain, nausea, vomiting, increased stoma output, hematuria or flank. Blood in the stoma.occult blood was positive. The last hemoglobin was 9.6 on 12.01 done in AUGUST, the patient was admitted to another facility to 3 months ago, but he also had anemia and was given some . Blood transfusions. He is not sure if he had an EGD scope or a colonoscopy. The patient has a history of colon cancer, status post Hemicolectomy,he has a ostomy in place. These underwent radiation therapy after surgery. 10/27: Pt seen examined, no acute overnight events, s/p 2 units prbc, hb stable this AM, s/p EGD revealed gastritis small erosions and one AVM, no active bleeding. Patient had a pICC placed for IV access yesterday. He denied any acute issue labs reviewed, 10/28: Pt seen examined, chart reviwed, no acute events, pt doing well this AM, still has some fatigue, but no other acute issues, left leg is a bit numb, but he is able to walk on it, move it, leg feels warm, pulses present. His labs reviewed, Creat is improving at 4.0, his bicarb dropped despite being on oral bicarb. Hb dropped to 8, no reported bleeding. Vit b12 is low, plan to replace IM for now. albumin is 1.4, pt not happy with the meal choices offered on a renal diet, he is on nepro supplement. 10/29: Pt seen examined, no acute issues overnight, labs reviewd, bicrab is normal , d/c bicarb drip and start on saline IVF. Monitor . H/H stable, hb 8.8, on Vit B12 supplements or now. patient denies any acute issues Blood cx positive for pseudomonas, Urine cx positive for pseudomonas, and klebsiella. Will monitor for now. 10/30: patient seen and examined, no acute overnight events, patient's labs remained stable, his microbiology was positive for Pseudomonas,Pseudomonas is pansensitive and the urine, and the blood. It has shown intermediate resistance to ciprofloxacin. The patient's Klebsiella is multidrug resistant but sensitive to Zosyn and imipenem. At this time, the patient's renal function remained stable His creatinine clearance is. 5. The patient is bacteremic despite being on antibiotics. We have consulted Dr. milan evaluated the patient and recommended a stent exchange and bladder catheter exchange. We will continue with antibiotics, Zosyn and ciprofloxacin. Repeat blood cultures ordered again today. The patient remains persistently bacteremic. the patient will be transferred to a referral center where infectious disease consult is available. 10/31: she was seen, examined, no acute overnight events, the patient is doing well. Denies any chest pain, shortness of breath, fever or chills. He had stent exchange done by urology this morning. The patient's microbiology is negative for the last 2 days. He has multidrug resistant Klebsiella in the urine, which is sensitive to Zosyn. He also has Pseudomonas in the blood in the urine, which is sensitive to Zosyn. Continue antibiotics for now and follow cultures. Monitor on telemetry. Pertinent ROS: Denies headache, dizziness Denies chest pain, palpitations Denies cough or shortness of breath Denies abdominal pain, nausea or vomiting. - Constitutional Vitals: Vital Signs Temp Pulse Resp BP Pulse Ox 96.8 F L 80 18 91/63 98 10/31/16 12:01 10/31/16 12:01 10/31/16 10:48 10/31/16 12:01 10/31/16 12:01 Period Temp Pulse Resp BP Sys/De Luna Pulse Ox Last 24 Hr 96.8 F-98.4 F 78-89 11-25 90-119/57-81 96-100 Intake and Output 10/31/16 10/31/16 10/31/16 05:59 13:59 21:59 Intake Total 1170 / 1170 957 / 957 Output Total 1000 / 1000 340 / 340 Balance 170 / 170 617 / 617 Intake & Output: Intake & Output 10/31/16 10/31/16 10/31/16 05:59 13:59 21:59 Intake Total 1170 / 1170 957 / 957 Output Total 1000 / 1000 340 / 340 Balance 170 / 170 617 / 617 Intake: IV 1050 / 1050 757 / 757 Sodium Chloride 0.9% 1, 1000 / 1000 757 / 757 000 ml @ 84 mls/hr IV . [id number] [facility] Rx#:[id number] Zosyn 2.25 gm In Dextrose 50 / 50 5% in Water 50 ml @ 100 mls/hr IV Q8H [facility] Rx#: [id number] Oral 120 / 120 IV - Manual Only 200 / 200 Output: Urine Catheter Amount 900 / 900 340 / 340 Stool 100 / 100 Exam: Constitutional; Afebrile, cooperative, alert, not in distress. Eyes- No icterus, , No periorbital swelling Ears- Ext ear normal, hearing normal to conversation. Neck- Midline trachea, supple Respiratory system: Air Entry equal on both sides, No crackles or wheezing, no rhonchi. CVS- Rate rhythm regular, S1,S2 heard, no gallop, no rub. Abdomen- Soft nontender abdomen, no organomegaly, no tenderness, no guarding or rigidity, [employer]- AOOx3, moving all extremities, no gross focal deficit noted. Medical - PN: Obj Da - Labs CBC & Chem 7: 10/31/16 07:17 10/31/16 07:17 Labs: Abnormal Lab Results 10/31/16 10/31/16 10/31/16 08:33 07:17 07:17 WBC RBC 3.01 L Hgb 8.7 L Hct 27.1 L RDW 18.0 H MPV 6.6 L Gran % Lymph % (Auto) Gran # Lymph # (Auto) PT 15.7 H INR 1.2 H Chloride Carbon Dioxide 20 L BUN 30 H Creatinine 3.3 H Calcium 7.7 L Magnesium Total Protein Albumin Albumin/Globulin Ratio Ur Creatinine 24 Hour Creatinine Clearance Ur Urea Nitrogen 24 Hr 10/31/16 10/31/16 10/30/16 04:00 04:00 03:30 WBC RBC 2.55 L Hgb 7.5 L Hct 23.1 L RDW 17.6 H MPV 6.9 L Gran % Lymph % (Auto) 13.7 L Gran # Lymph # (Auto) 1.1 L PT INR Chloride 112 H Carbon Dioxide 19 L 21 L BUN 27 H 35 H Creatinine 3.1 H 3.7 H Calcium 6.8 L 7.3 L Magnesium 1.3 L 1.5 L Total Protein 3.7 L 4.1 L Albumin 1.5 L 1.4 L Albumin/Globulin Ratio 0.7 L 0.5 L Ur Creatinine 24 Hour Creatinine Clearance Ur Urea Nitrogen 24 Hr 10/30/16 10/29/16 10/29/16 03:30 04:20 04:19 WBC 11.1 H RBC 2.93 L Hgb 8.6 L Hct 26.4 L RDW 17.7 H MPV 6.8 L Gran % 81.2 H Lymph % (Auto) 12.3 L Gran # 9.0 H Lymph # (Auto) 1.4 L PT INR Chloride Carbon Dioxide BUN Creatinine 3.7 H Calcium Magnesium Total Protein Albumin Albumin/Globulin Ratio Ur Creatinine 24 Hour 0.4 L Creatinine Clearance 5 L Ur Urea Nitrogen 24 Hr 2.6 L 10/29/16 10/29/16 03:24 03:24 WBC 11.8 H RBC 3.03 L Hgb 8.8 L Hct 26.8 L RDW 17.8 H MPV 6.6 L Gran % 81.3 H Lymph % (Auto) 11.7 L Gran # 9.6 H Lymph # (Auto) 1.4 L PT INR Chloride Carbon Dioxide BUN 39 H Creatinine 3.9 H Calcium 7.2 L Magnesium Total Protein 4.2 L Albumin 1.7 L Albumin/Globulin Ratio 0.7 L Ur Creatinine 24 Hour Creatinine Clearance Ur Urea Nitrogen 24 Hr Meds: Medications Acetaminophen (Tylenol) 650 mg PO Q4-6HP PRN PRN Reason: PAIN/FEVER > 101 Albuterol/Ipratropium (Duoneb) 3 ml NEB Q6HRT PRN PRN Reason: Shortness Of Breath Or Wheezing Cyanocobalamin (Vitamin B12) 1,000 mcg IM DAILY [facility] Stop: 11/03/16 09:01 Heparin Sodium (Porcine) (Heparin Flush) 2 ml IV Q12 [facility] Hydromorphone HCl (Dilaudid) 0.5 mg IV Q2HP PRN PRN Reason: Pain Ciprofloxacin (Cipro) 400 mg in 200 mls @ 200 mls/hr IV DAILY [facility] Potassium Chloride 40 meq/ (Dextrose) 270 mls @ 67.5 mls/hr IV ONCE ONE Stop: 10/31/16 14:59 Last Admin: 10/31/16 11:25 Dose: 67.5 mls/hr Sodium Chloride (Sodium Chloride 0.9%) 1,000 mls @ 84 mls/hr IV .[id number] [facility] Last Admin: 10/31/16 11:23 Dose: Not Given Piperacillin Sod/Tazobactam (Sod 2.25 gm/ Dextrose) 50 mls @ 100 mls/hr IV Q8H [facility] Last Admin: 10/31/16 11:26 Dose: 100 mls/hr Naloxone HCl (Narcan) 0.1 mg IV Q2MIN PRN PRN Reason: Opiate Reversal Ondansetron HCl (Zofran) 4 mg IV Q4-6HP PRN PRN Reason: Nausea And Vomiting Pantoprazole Sodium (Protonix) 40 mg IV BIDAC [facility] Sodium Bicarbonate (Sodium Bicarbonate) 1,300 mg PO BID [facility] Sodium Chloride (Saline Flush) 10 ml IV UD PRN PRN Reason: FLUSH Sodium Chloride (Saline Flush) 10 ml IV Q8 [facility] Last Admin: 10/31/16 14:43 Dose: 10 ml Medical - PN: A/P - Time Spent With Patient Total time spent is greater than 50% in coordination of care (as documented) at patient's floor/unit and/or counseling patient: - Narrative A/P Narrative: assessment and plan Sepsis: resolved. UTI: patient is capsule and Pseudomonas in the urine, Pseudomonas is pansensitive, Klebsiella is multidrug resistant, patient has Pseudomonas growing in the blood.the patient is on IV Zosyn and IV ciprofloxacin for now. Stent exchange was done by urology today. Severe Anemia duet o chr blood loss and renal failure.: s/p 2 units, hb 8.6 stable, on Vitamin B12 supplements. stable GI consult appreciated, s/p EGD and cautry of AVM, multiple small erosions noted. continue PPI , no further bleeding noted. Acute on Chr renal failure: renal function better, stable, creat clearnce is 5, HTN: Bp stable hold home meds for now. not sure if they are needed any more. Acidosis, hagma and nagma: due to renal failure, on PO bicarb supplements. Bicarb is 20 Severe malnutrition: Albumin is 1.5, on renal diet with nephro, Hypokalemia : replace, and monitor. Hypocalcemia: calcium low, but ok if corrected for low albumin. DVT SCD Diet renal with nepro Full code. Medical - PN: Qual - VTE Deep Vein Thrombosis/Pulmonary Embolism Present on Admission: No
--- NOTE | 2016-10-31 16:56 | Nephrology Progress Note ---
Subjective Patient information: Note initiated : 10/31/16 at 4:54 pm Service Date, if different from initiated Date: [] Patient: Roland Moon 71 y/o M admitted on 10/26/16 for Blood Pressure Problem/ Sepsis, UTI. Chief Complaint: [] Principal diagnosis: sepsis, Acute on chronic renal failure Interval history: Patient had his stent replaced today he still has poor appetite he denies SOB, CP, vomiting, diarrhea he does have LE edema no new urinary issues repeat blood culture negative so far Pertinent ROS: as above Objective - Vital Signs Vital signs: Vital Signs Temp Pulse Pulse Resp BP BP Pulse Ox 10/31/16 16:18 98.5 F 88 20 111/71 100 10/31/16 14:31 99/69 10/31/16 14:01 100/68 10/31/16 13:31 89/63 10/31/16 13:01 91/60 10/31/16 12:31 92/64 10/31/16 12:01 96.8 F L 80 91/63 98 10/31/16 11:46 79 100/67 97 10/31/16 11:31 78 105/70 99 10/31/16 11:23 79 103/66 98 10/31/16 11:05 81 102/65 98 10/31/16 10:48 97.3 F 86 18 94/61 99 10/31/16 10:37 89 13 92/57 97 10/31/16 10:30 81 12 93/59 99 10/31/16 10:22 97.0 F 86 11 L 111/66 100 10/31/16 09:27 12 10/31/16 09:01 11 L 119/72 10/31/16 08:01 18 105/72 10/31/16 08:00 98.0 F 100 10/31/16 07:01 18 104/69 10/31/16 06:01 19 108/67 10/31/16 05:01 12 101/64 10/31/16 04:01 98.2 F 14 107/74 99 10/31/16 03:01 17 106/74 10/31/16 02:01 17 114/75 10/31/16 01:01 17 110/73 10/31/16 00:01 98.4 F 25 H 90/63 100 10/30/16 23:01 16 96/65 10/30/16 22:01 19 97/67 10/30/16 21:20 14 10/30/16 21:01 13 112/63 10/30/16 20:01 97.6 F 14 118/67 100 10/30/16 19:04 12 10/30/16 19:01 15 110/71 10/30/16 18:14 18 115/81 10/30/16 18:11 15 115/61 98 Intake and Output 10/31/16 10/31/16 10/31/16 05:59 13:59 21:59 Intake Total 1170 / 1170 957 / 957 Output Total 1000 / 1000 340 / 340 200 / 200 Balance 170 / 170 617 / 617 -200 / -200 Intake: IV 1050 / 1050 757 / 757 Sodium Chloride 0.9% 1, 1000 / 1000 757 / 757 000 ml @ 84 mls/hr IV . [id number] [facility] Rx#:[id number] Zosyn 2.25 gm In Dextrose 50 / 50 5% in Water 50 ml @ 100 mls/hr IV Q8H [facility] Rx#: [id number] Oral 120 / 120 IV - Manual Only 200 / 200 Output: Urine Catheter Amount 900 / 900 340 / 340 200 / 200 Stool 100 / 100 Other: # Bowel Movements 0 Intake & Output: Intake & Output 10/31/16 10/31/16 10/31/16 05:59 13:59 21:59 Intake Total 1170 / 1170 957 / 957 Output Total 1000 / 1000 340 / 340 200 / 200 Balance 170 / 170 617 / 617 -200 / -200 Intake: IV 1050 / 1050 757 / 757 Sodium Chloride 0.9% 1, 1000 / 1000 757 / 757 000 ml @ 84 mls/hr IV . [id number] [facility] Rx#:[id number] Zosyn 2.25 gm In Dextrose 50 / 50 5% in Water 50 ml @ 100 mls/hr IV Q8H [facility] Rx#: [id number] Oral 120 / 120 IV - Manual Only 200 / 200 Output: Urine Catheter Amount 900 / 900 340 / 340 200 / 200 Stool 100 / 100 Other: # Bowel Movements 0 - General Appearance General appearance: chronically ill, frail EENT: mucous membranes moist Neck: no JVD Respiratory: clear Cardiology: no rub, edema, normal S1, normal S2 Gastrointestinal: no tenderness, no guarding Integumentary: no rash, warm and dry Neurologic: no asterixis, alert and oriented x3 Musculoskeletal: no erythema, no cyanosis Psychiatric: mood/affect appropriate - Lab 10/31/16 07:17 10/31/16 07:17 Most recent lab results Calcium 7.7 mg/dl (8.6-10.4) L 10/31/16 07:17 Phosphorus 3.6 mg/dL (2.7-4.5) 10/31/16 04:00 Magnesium 1.3 mg/dL (1.6-2.5) L 10/31/16 04:00 Urine Creatinine 33.1 mg/dL 10/29/16 04:19 Assessment and Plan (1) Acute on chronic renal failure s.creatinine down to 3.3, egfr is 18 24 hour urinary analysis shows creatinine clearance of only 5ml/min discussed with the pt, he is refusing dialysis, he will think about this, no emergent need if no meaningful improvement in renal function will need to address goals of care no hyperkalemia, bicarb better on supplement Anemia: Hb stable at 8.7 stable, on b12 injections, will monitor UTI/ gram negative bacteremia: on antibiotics, UC shows pseudomonas, one isolate is intermediate sensitive to ciprofloxacin on dual antibiotics s/p change of stents not a surgical candidate for extensive intervention and recurrent UTI may remain an issue malnutrition: very poor appetite, does not eat much, will have him only on low sodium diet and see if he can eat some more ct nepro overall poor prognosis given recurrent nature of his infections Status: Acute
[2016-10-31] MEDS ORDERED: DIPHENOXYLATE HCL/ATROPINE 1 TABLET PO ONE (18:31)
[2016-10-31] MEDS ORDERED: LOPERAMIDE 2 MG CAPSULE PO ONE (20:14)
[2016-11-01] MEDS: PIPERACILLIN SODIUM/TAZOBACTAM 2.25 GM in DEXTROSE 5% IN WATER 50 ML IV SCH ×3 (02:22→18:03)
[2016-11-01] MEDS: 0.9 % SODIUM CHLORIDE 10 ML SYRINGE IV SCH ×3 (04:32→22:00)
[2016-11-01 06:04] LABS: Basophils # (Auto) 0 K/mcL (0.0-0.3); Basophils % (Auto) 0.1 % (0.0-2.0); Eosinophils # (Auto) 0.1 K/mcL (0.0-0.7); Eosinophils % (Auto) 0.5 % (0.0-7.0); Granulocytes % (Auto) 92.2 % (38.0-78.0); Lymphocytes # (Auto) 0.6 K/mcL (1.5-4.8); Lymphocytes % (Auto) 5.9 % (15.5-49.0); Mean Cell Volume 89.2 fL (80.0-100.0); Mean Corpuscular HGB Conc 33.4 g/dL (31.0-36.0); Mean Corpuscular Hemoglobin 29.8 pg (26.0-34.0); Monocytes # (Auto) 0.1 K/mcL (0.1-0.9); Monocytes % (Auto) 1.3 % (1.0-12.0); Platelet Count 343 K/mcL (140-440); RBC 2.98 M/mcL (4.50-5.90)
[2016-11-01 06:20] LABS: ALT/SGPT < 5 U/l (0-40); Albumin 1.7 gm/dL (3.2-5.2); Albumin/Globulin Ratio 0.6 (1.0-2.3); Alkaline Phosphatase 82 U/L (39-117); Bilirubin,Direct < 0.2 mg/dL (0.0-0.3); Blood Urea Nitrogen 31 mg/dl (8-23); Gamma Glutamyl Transpeptidase 39 U/L (8-61); Magnesium 2.1 mg/dL (1.6-2.5); Uric Acid 3.4 mg/dL (2.5-8.0)
[2016-11-01] MEDS ORDERED: CIPROFLOXACIN 400 MG/200 ML BAG IV SCH (09:00)
[2016-11-01] MEDS ORDERED: CYANOCOBALAMIN 1,000 MCG/ML VIAL IM SCH (09:00)
[2016-11-01] MEDS: SODIUM BICARBONATE 650 MG TABLET PO SCH ×2 (09:06→19:57)
[2016-11-01] MEDS: PANTOPRAZOLE 40 MG VIAL IV SCH ×2 (09:06→18:01)
[2016-11-01] MEDS: 0.9 % SODIUM CHLORIDE 1,000 ML IV SCH ×2 (09:08→12:13)
--- NOTE | 2016-11-01 10:01 | Internal Med Progress Note ---
Medical - PN: Subj Patient information: Note initiated : 11/01/16 at 9:50 am Service Date, if different from initiated Date: [] Patient: Roland Moon 71 y/o M admitted on 10/26/16 for Blood Pressure Problem/ Sepsis, UTI. Chief Complaint: [] Interval history: Mr. Moon is a 71 year old Male with history of hypertension CKD, hydronephrosis in the past,bilateral stents in place, was sent to the ER from the nephrology clinic for evaluation of low blood pressure, tachycardia. The patient notes that he has had chronic weakness going on for the last few months, however, denies any other symptoms. In the [employer] office. The patient had a blood pressure systolic and 90, his heart rate is 140, Creat increased from 3.8-5.1. The patient underwent a chest x-ray which was reported as negative,ultrasound of the kidneys was negative, CT abdomen and pelvis without contrast was negative for retroperitoneal hematoma. Hydronephrosis or any other acute pathology. The patient was admitted to the hospital for further management. The patient denied any complaints like fever, chills cough, shortness of breath , burning urination, increased frequency of urination. Has a chronic indwelling JERONIMO catheter. He denied any symptoms of abdominal pain, nausea, vomiting, increased stoma output, hematuria or flank. Blood in the stoma.occult blood was positive. The last hemoglobin was 9.6 on 12.01 done in AUGUST, the patient was admitted to another facility to 3 months ago, but he also had anemia and was given some . Blood transfusions. He is not sure if he had an EGD scope or a colonoscopy. The patient has a history of colon cancer, status post Hemicolectomy,he has a ostomy in place. These underwent radiation therapy after surgery. 10/27: Pt seen examined, no acute overnight events, s/p 2 units prbc, hb stable this AM, s/p EGD revealed gastritis small erosions and one AVM, no active bleeding. Patient had a pICC placed for IV access yesterday. He denied any acute issue labs reviewed, 10/28: Pt seen examined, chart reviwed, no acute events, pt doing well this AM, still has some fatigue, but no other acute issues, left leg is a bit numb, but he is able to walk on it, move it, leg feels warm, pulses present. His labs reviewed, Creat is improving at 4.0, his bicarb dropped despite being on oral bicarb. Hb dropped to 8, no reported bleeding. Vit b12 is low, plan to replace IM for now. albumin is 1.4, pt not happy with the meal choices offered on a renal diet, he is on nepro supplement. 10/29: Pt seen examined, no acute issues overnight, labs reviewd, bicrab is normal , d/c bicarb drip and start on saline IVF. Monitor . H/H stable, hb 8.8, on Vit B12 supplements or now. patient denies any acute issues Blood cx positive for pseudomonas, Urine cx positive for pseudomonas, and klebsiella. Will monitor for now. 10/30: patient seen and examined, no acute overnight events, patient's labs remained stable, his microbiology was positive for Pseudomonas,Pseudomonas is pansensitive and the urine, and the blood. It has shown intermediate resistance to ciprofloxacin. The patient's Klebsiella is multidrug resistant but sensitive to Zosyn and imipenem. At this time, the patient's renal function remained stable His creatinine clearance is. 5. The patient is bacteremic despite being on antibiotics. We have consulted Dr. milan evaluated the patient and recommended a stent exchange and bladder catheter exchange. We will continue with antibiotics, Zosyn and ciprofloxacin. Repeat blood cultures ordered again today. The patient remains persistently bacteremic. the patient will be transferred to a referral center where infectious disease consult is available. 10/31: she was seen, examined, no acute overnight events, the patient is doing well. Denies any chest pain, shortness of breath, fever or chills. He had stent exchange done by urology this morning. The patient's microbiology is negative for the last 2 days. He has multidrug resistant Klebsiella in the urine, which is sensitive to Zosyn. He also has Pseudomonas in the blood in the urine, which is sensitive to Zosyn. Continue antibiotics for now and follow cultures. Monitor on telemetry. 11/01: Pt seen examined, no acute overnight events, patient otherwise doing well, no acute complaints, Blood cultures x 2 days are neg, s/p stent exchange yesterday, and tolerated the procedure well. Plan to continue IV antibiotics x 2 weeks, will continue with dual coverage if possible. Renal function stable on creat, but the pt creat is a poor reflection on his actual renal function given that his creat clearance is 5, will see if he can be discharged soon to home as thats what patient wishes. Pertinent ROS: Denies headache, dizziness Denies chest pain, palpitations Denies cough or shortness of breath Denies abdominal pain, nausea or vomiting. - Constitutional Vitals: Vital Signs Temp Pulse Resp BP Pulse Ox 97.2 F 88 16 113/71 98 11/01/16 08:01 10/31/16 16:18 11/01/16 04:01 11/01/16 08:01 11/01/16 07:54 Period Temp Pulse Resp BP Sys/De Luna Pulse Ox Last 24 Hr 96.8 F-98.5 F 78-89 11-20 89-116/57-81 97-100 Intake and Output 10/31/16 11/01/16 11/01/16 21:59 05:59 13:59 Intake Total 350 / 350 350 / 350 1000 / 1000 Output Total 200 / 200 375 / 375 Balance 150 / 150 -25 / -25 1000 / 1000 Weight 164 lb 4.8 oz Intake & Output: Intake & Output 10/31/16 11/01/16 11/01/16 21:59 05:59 13:59 Intake Total 350 / 350 350 / 350 1000 / 1000 Output Total 200 / 200 375 / 375 Balance 150 / 150 -25 / -25 1000 / 1000 Weight 164 lb 4.8 oz Intake: IV 50 / 50 50 / 50 1000 / 1000 Sodium Chloride 0.9% 1, 1000 / 1000 000 ml @ 84 mls/hr IV . [id number] [facility] Rx#:[id number] Zosyn 2.25 gm In Dextrose 50 / 50 50 / 50 5% in Water 50 ml @ 100 mls/hr IV Q8H [facility] Rx#: [id number] Oral 300 / 300 300 / 300 Output: Urine Catheter Amount 200 / 200 375 / 375 Other: # Bowel Movements 0 1 Exam: Constitutional; Afebrile, cooperative, alert, not in distress. Eyes- No icterus, , No periorbital swelling Ears- Ext ear normal, hearing normal to conversation. Neck- Midline trachea, supple Respiratory system: Air Entry equal on both sides, No crackles or wheezing, no rhonchi. CVS- Rate rhythm regular, S1,S2 heard, no gallop, no rub. Abdomen- Soft nontender abdomen, no organomegaly, no tenderness, no guarding or rigidity,Ostomy in place. [employer]- AOOx3, moving all extremities, no gross focal deficit noted. Medical - PN: Obj Da - Labs CBC & Chem 7: 11/01/16 04:00 11/01/16 04:00 Labs: Abnormal Lab Results 11/01/16 11/01/16 10/31/16 04:00 04:00 08:33 WBC RBC 2.98 L Hgb 8.9 L Hct 26.6 L RDW 17.0 H MPV Gran % 92.2 H Lymph % (Auto) 5.9 L Gran # 9.3 H Lymph # (Auto) 0.6 L PT 15.7 H INR 1.2 H Chloride Carbon Dioxide 18 L BUN 31 H Creatinine 3.3 H Glucose 161 H Calcium 8.0 L Magnesium Total Protein 4.5 L Albumin 1.7 L Albumin/Globulin Ratio 0.6 L Ur Creatinine 24 Hour Creatinine Clearance Ur Urea Nitrogen 24 Hr 10/31/16 10/31/16 10/31/16 07:17 07:17 04:00 WBC RBC 3.01 L Hgb 8.7 L Hct 27.1 L RDW 18.0 H MPV 6.6 L Gran % Lymph % (Auto) Gran # Lymph # (Auto) PT INR Chloride 112 H Carbon Dioxide 20 L 19 L BUN 30 H 27 H Creatinine 3.3 H 3.1 H Glucose Calcium 7.7 L 6.8 L Magnesium 1.3 L Total Protein 3.7 L Albumin 1.5 L Albumin/Globulin Ratio 0.7 L Ur Creatinine 24 Hour Creatinine Clearance Ur Urea Nitrogen 24 Hr 10/31/16 10/30/16 10/30/16 04:00 03:30 03:30 WBC 11.1 H RBC 2.55 L 2.93 L Hgb 7.5 L 8.6 L Hct 23.1 L 26.4 L RDW 17.6 H 17.7 H MPV 6.9 L 6.8 L Gran % 81.2 H Lymph % (Auto) 13.7 L 12.3 L Gran # 9.0 H Lymph # (Auto) 1.1 L 1.4 L PT INR Chloride Carbon Dioxide 21 L BUN 35 H Creatinine 3.7 H Glucose Calcium 7.3 L Magnesium 1.5 L Total Protein 4.1 L Albumin 1.4 L Albumin/Globulin Ratio 0.5 L Ur Creatinine 24 Hour Creatinine Clearance Ur Urea Nitrogen 24 Hr 10/29/16 10/29/16 04:20 04:19 WBC RBC Hgb Hct RDW MPV Gran % Lymph % (Auto) Gran # Lymph # (Auto) PT INR Chloride Carbon Dioxide BUN Creatinine 3.7 H Glucose Calcium Magnesium Total Protein Albumin Albumin/Globulin Ratio Ur Creatinine 24 Hour 0.4 L Creatinine Clearance 5 L Ur Urea Nitrogen 24 Hr 2.6 L Meds: Medications Acetaminophen (Tylenol) 650 mg PO Q4-6HP PRN PRN Reason: PAIN/FEVER > 101 Albuterol/Ipratropium (Duoneb) 3 ml NEB Q6HRT PRN PRN Reason: Shortness Of Breath Or Wheezing Cyanocobalamin (Vitamin B12) 1,000 mcg IM DAILY [facility] Stop: 11/03/16 09:01 Last Admin: 11/01/16 09:06 Dose: 1,000 mcg Heparin Sodium (Porcine) (Heparin Flush) 2 ml IV Q12 [facility] Last Admin: 11/01/16 09:07 Dose: 2 ml Hydromorphone HCl (Dilaudid) 0.5 mg IV Q2HP PRN PRN Reason: Pain Ciprofloxacin (Cipro) 400 mg in 200 mls @ 200 mls/hr IV DAILY [facility] Last Admin: 11/01/16 09:06 Dose: 200 mls/hr Sodium Chloride (Sodium Chloride 0.9%) 1,000 mls @ 84 mls/hr IV .[id number] [facility] Last Admin: 11/01/16 09:08 Dose: 84 mls/hr Piperacillin Sod/Tazobactam (Sod 2.25 gm/ Dextrose) 50 mls @ 100 mls/hr IV Q8H [facility] Last Admin: 11/01/16 09:06 Dose: 100 mls/hr Naloxone HCl (Narcan) 0.1 mg IV Q2MIN PRN PRN Reason: Opiate Reversal Ondansetron HCl (Zofran) 4 mg IV Q4-6HP PRN PRN Reason: Nausea And Vomiting Pantoprazole Sodium (Protonix) 40 mg IV BIDAC [facility] Last Admin: 11/01/16 09:06 Dose: 40 mg Sodium Bicarbonate (Sodium Bicarbonate) 1,300 mg PO BID [facility] Last Admin: 11/01/16 09:06 Dose: 1,300 mg Sodium Chloride (Saline Flush) 10 ml IV UD PRN PRN Reason: FLUSH Sodium Chloride (Saline Flush) 10 ml IV Q8 [facility] Last Admin: 11/01/16 04:32 Dose: 10 ml Medical - PN: A/P - Time Spent With Patient Total time spent is greater than 50% in coordination of care (as documented) at patient's floor/unit and/or counseling patient: - Narrative A/P Narrative: assessment and plan Sepsis: resolved. UTI: patient is capsule and Pseudomonas in the urine, Pseudomonas is pansensitive, Klebsiella is multidrug resistant, patient has Pseudomonas growing in the blood.the patient is on IV Zosyn and IV ciprofloxacin for now. Stent exchange was done by urology. continue to monitor await 48 hrs of neg cultures. Anticipate d/c home tomorrow with home IV ABX. patient refused SNF placement. Severe Anemia duet o chr blood loss and renal failure.: s/p 2 units, hb stable , on Vitamin B12 supplements. stable GI consult appreciated, s/p EGD and cautry of AVM, multiple small erosions noted. continue PPI , no further bleeding noted. Acute on Chr renal failure: renal function stable, creat clearnce is 5, he will likely need HD in near future, he will follow up with nephrology for followu p. HTN: Bp stable hold home meds for now. not sure if they are needed any more. Acidosis, hagma and nagma: due to renal failure, on PO bicarb supplements. Bicarb is 18, Severe malnutrition: Albumin is 1.7, on renal diet with nephro, Hypocalcemia: calcium low, but ok if corrected for low albumin. DVT SCD Diet renal with nepro Full code. Ok to transfer to med surg. Medical - PN: Qual - VTE Deep Vein Thrombosis/Pulmonary Embolism Present on Admission: No
[2016-11-01] MEDS ORDERED: HYDROmorphone 2 MG/ML SYRINGE IV PRN (11:10)
[2016-11-01] MEDS ORDERED: 0.9 % SODIUM CHLORIDE 10 ML SYRINGE IV PRN (11:10)
[2016-11-01] MEDS ORDERED: ONDANSETRON 4 MG/2 ML VIAL IV PRN (11:10)
[2016-11-01] MEDS ORDERED: IPRATROPIUM/ALBUTEROL 3 ML AMPUL.NEB NEB PRN (11:10)
[2016-11-01] MEDS ORDERED: NALOXONE HCL 0.4 MG/ML VIAL IV PRN (11:10)
[2016-11-01] MEDS: ACETAMINOPHEN 325 MG TABLET PO PRN (12:13)
[2016-11-02] MEDS: PIPERACILLIN SODIUM/TAZOBACTAM 2.25 GM in DEXTROSE 5% IN WATER 50 ML IV SCH ×2 (01:40→10:26)
[2016-11-02] MEDS: 0.9 % SODIUM CHLORIDE 1,000 ML IV SCH (02:34)
[2016-11-02] MEDS: 0.9 % SODIUM CHLORIDE 10 ML SYRINGE IV SCH ×2 (06:35→13:27)
[2016-11-02 07:09] LABS: Basophils # (Auto) 0 K/mcL (0.0-0.3); Basophils % (Auto) 0.1 % (0.0-2.0); Eosinophils # (Auto) 0.1 K/mcL (0.0-0.7); Eosinophils % (Auto) 1.1 % (0.0-7.0); Granulocytes % (Auto) 84.8 % (38.0-78.0); Lymphocytes # (Auto) 1.6 K/mcL (1.5-4.8); Lymphocytes % (Auto) 12.3 % (15.5-49.0); Mean Corpuscular HGB Conc 32.4 g/dL (31.0-36.0); Mean Corpuscular Hemoglobin 29.2 pg (26.0-34.0); Monocytes # (Auto) 0.2 K/mcL (0.1-0.9); Monocytes % (Auto) 1.7 % (1.0-12.0); Platelet Count 336 K/mcL (140-440); RBC 2.96 M/mcL (4.50-5.90); Red Cell Distribution Width 17.3 % (11.5-14.5)
[2016-11-02] MEDS: PANTOPRAZOLE 40 MG VIAL IV SCH (07:20)
[2016-11-02 07:27] LABS: ALT/SGPT 5 U/l (0-40); Albumin 1.9 gm/dL (3.2-5.2); Albumin/Globulin Ratio 0.8 (1.0-2.3); Alkaline Phosphatase 70 U/L (39-117); Bilirubin,Direct < 0.2 mg/dL (0.0-0.3); Blood Urea Nitrogen 30 mg/dl (8-23); Gamma Glutamyl Transpeptidase 38 U/L (8-61); Magnesium 1.9 mg/dL (1.6-2.5); Uric Acid 3.6 mg/dL (2.5-8.0)
[2016-11-02] MEDS: ACETAMINOPHEN 325 MG TABLET PO PRN ×2 (07:37→13:08)
[2016-11-02] MEDS ORDERED: CIPROFLOXACIN 400 MG/200 ML BAG IV SCH (09:00)
[2016-11-02] MEDS ORDERED: CYANOCOBALAMIN 1,000 MCG/ML VIAL IM SCH (09:00)
[2016-11-02] MEDS ORDERED: ALLOPURINOL 300 MG TABLET PO SCH (09:00)
[2016-11-02] MEDS: SODIUM BICARBONATE 650 MG TABLET PO SCH (09:21)
--- NOTE | 2016-11-02 09:37 | Ultrasound Report ---
CLINICAL INFORMATION: Rest pain peripheral vascular disease COMPARISON: None. FINDINGS: The attached sheet IMPRESSION: 1. Right leg runoff: The common and external iliac arteries were not examined. A 50% stenosis is noted in the right common femoral artery. The superficial femoral, popliteal and trifurcation arteries contain moderate atherosclerotic disease, but no significant stenoses. 2. 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 The common femoral, superficial femoral and trifurcation arteries contain scattered atherosclerotic plaque with stenoses all less than 50%. 3. Suggest: CT abdominal aortogram with runoff. If patient cannot tolerate IV contrast, then MR abdominal aortogram with runoff would be a good substitute. Interpreted and Authenticated by: Jack Bautista 11/02/16
[2016-11-02 09:57] LABS: Basophils # (Auto) 0 K/mcL (0.0-0.3); Basophils % (Auto) 0.3 % (0.0-2.0); Eosinophils # (Auto) 0.1 K/mcL (0.0-0.7); Eosinophils % (Auto) 1.1 % (0.0-7.0); Granulocytes % (Auto) 84.4 % (38.0-78.0); Lymphocytes # (Auto) 1.6 K/mcL (1.5-4.8); Lymphocytes % (Auto) 12.4 % (15.5-49.0); Mean Cell Volume 88.7 fL (80.0-100.0); Mean Corpuscular HGB Conc 32.7 g/dL (31.0-36.0); Monocytes # (Auto) 0.2 K/mcL (0.1-0.9); Monocytes % (Auto) 1.8 % (1.0-12.0); Platelet Count 358 K/mcL (140-440); RBC 2.96 M/mcL (4.50-5.90); Red Cell Distribution Width 17.6 % (11.5-14.5)
--- NOTE | 2016-11-02 12:39 | Discharge Summary ---
Medical - DS: Prov Patient information: Note initiated : 11/02/16 at 12:36 pm Service Date, if different from initiated Date: [] Patient: Roland Moon 71 y/o M admitted on 10/26/16 for Blood Pressure Problem/ Sepsis, UTI. Chief Complaint: [] Date of admission: 10/26/16 17:30 Discharge date: 11/02/16 Primary care physician: Jluis Keenan Admitting clinician: Ashley Robert Consults: 10/26/16 18:16 Consult to Physician [CONS] Routine Comment: GI bleed. Consulting Provider: Antolin Calvin Reason For Exam: Physician to Consult 10/30/16 15:00 Consult to Physician [CONS] Routine Comment: urosepsis, h/o stent placement, chronic indwelling Consulting Provider: Darrick Romero Reason For Exam: Physician to Consult Discharging clinician: Ashley Robert Medical - DS: Meds - Discharge Medications Prescriptions: Cyanocobalamin (Vitamin B-12) [Vitamin B12] 2,500 mcg PO DAILY #30 tablet Omeprazole 20 mg PO BIDAC #60 tablet. Piperacillin Sodium/Tazobactam [Zosyn] 2.25 gm IV Q8H #42 vial Sodium Bicarbonate 1,300 mg PO BID #120 tablet Active and Home Medications: Home Medications Ostomy System Supplies MISCELLANE 08/18/15 [History Confirmed 12/22/15 Last Taken Unknown] allopurinol 300 mg tablet 300 mg PO QDAY 08/18/15 [History Confirmed 12/22/15 Last Taken Unknown] clonidine HCl 0.2 mg tablet 0.2 mg PO BID tab 08/18/15 [History Confirmed 12/21 Last Taken Unknown] metoprolol tartrate 100 mg tablet 200 mg PO BID tab 08/18/15 [History Confirmed 12/22/15 Last Taken Unknown] ostomy adhesive paste See Dose Instructions .ROUTE .MEDSUPPLY 08/18/15 [History Confirmed 12/22/15 Last Taken Unknown] bumetanide 2 mg tablet 2 mg PO QDAY PRN 08/30/15 [History Confirmed 12/22/15 Last Taken Unknown] potassium chloride ER 10 mEq tablet,extended release 10 meq PO QDAY PRN tab 09/08 [History Confirmed 12/22/15 Last Taken Unknown] calcitriol 0.25 mcg capsule 0.25 mcg PO QDAY #60 cap 01/27/16 [Rx Confirmed 06/08 Last Taken Unknown] sodium bicarbonate 650 mg tablet 650 mg PO BID #60 tab 02/21/16 [Rx Last Taken Unknown] Medical - DS: Hosp Hospital course: Mr. Moon is a 71 year old Male with history of hypertension, not taking any blood pressure medications, chronic kidney disease, hydronephrosis in the past with stent in place. Long-term JERONIMO in place. Presented to the hospital with complaints of low blood pressure as well as tachycardia. The patient was admitted to the hospital with a diagnosis of sepsis secondary to urinary tract infection. He also had acute on chronic renal failure Sepsis/urinary tract infection-the patient was treated with IV fluids as well as IV antibiotics. Initially given vancomycin and Zosyn. Vancomycin was held. Once microbiology was positive for gram-negative bacillus. The patient's urine culture grew Pseudomonas aeruginosa, which was pansensitive, as well as Klebsiella, which was multidrug resistant but sensitive to Zosyn. The patient was treated initially with Zosynand ciprofloxacin was added later for a few days. The patient will need IV antibiotics for a total of 14 days after discharge. He has a PICC line in place and he will go to her local hospital for his IV medications. The patient's blood cultures were also positive for Pseudomonas,the last blood cultures for 2 days consecutively have been negative for 48 hours. The patient had urinary stents, as well as a chronic indwelling JERONIMO catheter This was exchanged with the help of urology. The patient tolerated the procedure very well. Next Acute on chronic renal failure-metabolic acidosis-he patient had worsening renal function likely due to low blood pressure as well as poor oral intake. His renal function at discharge shows creatinine of 3.1. However, the patient is poor nutritional status and creatinine is normal very good measure of the patient's overall renal function. 24-hourcreatinine clearance showed that the patient had creatinine clearance of 5.the patient will follow up with nephrology for further management. Anemia-the patient presented with low hemoglobin, there was a suspicion that the patient may have had chronic GI bleed. GI was consulted and the patient had chronic gastritis on his EGD scoping. He also had one AVM that was cauterized Patient will be started on omeprazole twice daily. The patient also has low vitamin B12 levels and he needs high-dose oral vitamin B12. he received 2 units of blood and his hemoglobin has remained stable since then. Lower extremity numbness: The patient had some numbness in the lower extremity, had poor pulses in bilateral lower extremities. Only DOPPLER were detected. The pulses. He underwent a DVT scan which was negative, echocardiogram was negative, his duplex ultrasound of the arteries showed significant arterial stenosis. DOPPLER study of the left leg showed obstruction of the internal and external arteries., pat had good capillary refill as well as good dopperable pulse. His right leg has > 50 stenosis in femoral artery, see report. he will be referred to Vascular interventional radiology. Patient has also been educated regarding signs and symptoms of acute limb ischemia and the need to go to the emergency should that happen. the patient is fairly debilitated at this point in time, he wants to go home and has refused longterm placement. He has a PICC line in place for his IV antibiotics. He will be discharged home today with follow-up with urology, nephrology, and his primary care physician for further management. The patient will have to get the PICC line removed at the local facility or his primary care 's office after the antibiotics are one.we are setting up home health for the patient 8 Discharge diagnosis: Acute anemia, Acute on chr renal failure, Sepsis, UTI/ BActermia. - Time Spent with Patient Total time spent providing and/or coordinating discharge services: Greater than 30 minutes Medical - DS: Exam - Constitutional Vitals: Vital Signs Temp Pulse Pulse Resp BP BP Pulse Ox 11/02/16 11:48 97.9 F 16 119/76 98 11/02/16 07:41 78 97 11/02/16 07:24 78 16 97 11/02/16 07:07 97.2 F 16 120/70 99 11/02/16 04:00 97.4 F 78 12 134/78 99 11/01/16 23:57 97.3 F 80 12 128/76 98 11/01/16 19:58 96.6 F L 77 12 120/73 99 11/01/16 16:00 78 11/01/16 15:02 97.9 F 20 101/64 98 11/01/16 14:10 16 98 Intake and Output 11/01/16 11/02/16 11/02/16 21:59 05:59 13:59 Intake Total 50 / 50 1150 / 1150 400 / 400 Output Total 350 / 350 425 / 425 Balance -300 / -300 725 / 725 400 / 400 Intake: IV 50 / 50 1050 / 1050 200 / 200 Sodium Chloride 0.9% 1, 1000 / 1000 000 ml @ 84 mls/hr IV . [id number] [facility] Rx#:[id number] Zosyn 2.25 gm In Dextrose 50 / 50 50 / 50 5% in Water 50 ml @ 100 mls/hr IV Q8H [facility] Rx#: [id number] Oral 100 / 100 200 / 200 Output: Urine Catheter Amount 350 / 350 425 / 425 Other: Meal Dinner Breakfast Percent of Meal Consumed 75% 50% Feeding Ability Assist with Tray Set Up Independent Weight 161 lb Additional comments: Constitutional; Afebrile, cooperative, alert, not in distress. Eyes- No icterus, , No periorbital swelling Ears- Ext ear normal, hearing normal to conversation. Neck- Midline trachea, supple Respiratory system: Air Entry equal on both sides, No crackles or wheezing, no rhonchi. CVS- Rate rhythm regular, S1,S2 heard, no gallop, no rub. Abdomen- Soft nontender abdomen, no organomegaly, no tenderness, no guarding or rigidity, (ostomy) CAN PATCHER- AOOx3, moving all extremities, no gross focal deficit noted. Medical - DS: Data Procedures and tests throughout hospitalization: Duplex Arterial USG MPRESSION: 1. Right leg runoff: The common and external iliac arteries were not examined. A 50% stenosis is noted in the right common femoral artery. The superficial femoral, popliteal and trifurcation arteries contain moderate atherosclerotic disease, but no significant stenoses. 2. 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 The common femoral, superficial femoral and trifurcation arteries contain scattered atherosclerotic plaque with stenoses all less than 50%. 3. Suggest: CT abdominal aortogram with runoff. If patient cannot tolerate IV contrast, then MR abdominal aortogram with runoff would be a good substitute. CXR chest COMPARISON: None. FINDINGS:The heart size, mediastinum and pulmonary vessels are unremarkable. The lungs are clear. There are no effusions. Minimal compression fractures seen throughout the mid lower thoracic spine IMPRESSION: No acute cardiopulmonary disease.. Renal USG FINDINGS: Both kidneys are borderline atrophic: The right is 8.1 x 4.5 cm and the left is 9.3 x 5.1 cm. Renal parenchymal echotexture is echogenic compatible with medical renal disease. There is a 10 mm cyst mid right kidney. A 7 nonobstructing stone is seen in the mid left kidney. No hydronephrosis. Urinary bladder is decompressed but shows no gross abnormality IMPRESSION: 1. No evidence of hydronephrosis 2. Elevated renal parenchymal echotexture compatible medical renal disease 3. Similar nonobstructing stone mid calyx the left kidney DVT scan. FINDINGS: The entire deep venous system including the common femoral, superficial femoral, popliteal and paired trifurcation calf veins are easily compressible and show normal venous blood flow on color and spectral Doppler. No evidence of thrombus IMPRESSION: Negative exam - no evidence of deep vein thrombosis. Labs on day of discharge: Labs from last 24 hours 11/02/16 11/02/16 11/02/16 09:11 04:00 04:00 WBC 12.9 H 12.9 H RBC 2.96 L 2.96 L Hgb 8.6 L 8.6 L Hct 26.3 L 26.6 L MCV 88.7 90.0 MCH 29.0 29.2 MCHC 32.7 32.4 RDW 17.6 H 17.3 H Plt Count 358 336 MPV 7.1 L 7.2 L Gran % 84.4 H 84.8 H Lymph % (Auto) 12.4 L 12.3 L [place] % (Auto) 1.8 1.7 Eos % (Auto) 1.1 1.1 Baso % (Auto) 0.3 0.1 Gran # 11.0 H 11.0 H Lymph # (Auto) 1.6 1.6 [place] # (Auto) 0.2 0.2 Eos # (Auto) 0.1 0.1 Baso # (Auto) 0 0 Sodium 145 Potassium 4.2 Chloride 111 H Carbon Dioxide 21 L Anion Gap 13.0 BUN 30 H Creatinine 3.1 H GFR Calculation 19 Glucose 71 Uric Acid 3.6 Calcium 7.6 L Phosphorus 4.0 Magnesium 1.9 Total Bilirubin < 0.2 Direct Bilirubin < 0.2 GGT 38 AST 11 ALT 5 Alkaline Phosphatase 70 Lactate Dehydrogenase 105 Total Protein 4.3 L Albumin 1.9 L Globulin 2.4 Albumin/Globulin Ratio 0.8 L Triglycerides 75 Preliminary micro results at discharge 10/30/16 10:47 Blood Culture - Preliminary Blood 10/30/16 10:55 Blood Culture - Preliminary Blood 10/29/16 17:37 Blood Culture - Preliminary Blood - Picc 10/29/16 17:40 Blood Culture - Preliminary Blood 10/28/16 12:15 Blood Culture - Preliminary Blood Pseudomonas aeruginosa Medical - DS: A/P - Patient/Caregiver Discharge Instructions Activity: as per physical therapy, increase activity as tolerated Diet: Cardiac, Renal/Consistent Carbs Additional Instructions: you have been admitted to the hospital for low hemoglobin, infection and the urine, and worsening kidney function. You were treated with IV antibiotics, IV fluids, change in his stents and blood transfusion. You have low vitamin B12 levels and need to take vitamin B12 supplements. Prescription of that has been given. He also had gastritis on the EGD scope. He and therefore need to be on omeprazole twice a day. You need intravenous IV antibiotics for at least 2 weeks. This has been arranged for you at the local hospital We will need to talk to your regular doctor or the local hospital for removal of the PICC line after the antibiotics are finished. Please follow-up with your Dr Mcgraw materials manager in1 week. Please follow up with Dr Romero urologist as scheduled. Please follow up with PCP in 2 weeks. Go to the ER if shortness of breath, fever, abdominal pain or any other concerning symptoms. Prescriptions: Cyanocobalamin (Vitamin B-12) [Vitamin B12] 2,500 mcg PO DAILY #30 tablet Omeprazole 20 mg PO BIDAC #60 tablet. Piperacillin Sodium/Tazobactam [Zosyn] 2.25 gm IV Q8H #42 vial Sodium Bicarbonate 1,300 mg PO BID #120 tablet - Follow up Plan Follow up with: Jluis Keenan MD [Primary Care Provider] - Darrick Romero MD [Physician] - Madai Mcgraw MD [Physician] - Jack Caal MD [Physician] - Disposition: Home Health Service Prognosis: Fair Rehab Potential: Fair I certify that the patient requires SNF services: No Overall status at discharge: patient is progressing back to baseline Medical - DS: Qual - VTE Deep Vein Thrombosis/Pulmonary Embolism Present on Admission: No
--- NOTE | 2016-11-02 15:34 | XRay Report ---
CLINICAL INFORMATION: Stent exchange COMPARISON: Abdomen and pelvic CT from 10/26/2016 and renal ultrasound from 10/30/2016 FINDINGS: Three images submitted from the OR. One image shows the upper end of a ureteral stent overlying the right upper collecting system. Second image shows the upper end of a ureteral stone overlying the left upper collecting system. There is a third image, over the bladder, showing the distal ends of both pigtail ureteral stents overlie the expected location of the bladder IMPRESSION: Bilateral ureteral stents overlying the expected location of the upper collecting systems, ureters and urinary bladder Interpreted and Authenticated by: Jack Bautista 11/02/16
--- NOTE | 2016-11-02 16:47 | Nephrology Progress Note ---
Subjective Patient information: Note initiated : 11/02/16 at 4:43 pm Service Date, if different from initiated Date: [] Patient: Roland Moon 71 y/o M admitted on 10/26/16 for Blood Pressure Problem/ Sepsis, UTI. Chief Complaint: [] Principal diagnosis: sepsis, Acute on chronic renal failure Interval history: patient requests to be discharged home, he refuses rehab he is feeling well though we have discussed rising wbc count he denies SOB, CP,d izziness NO OTHER issues he is not sure if he will come back and see us Pertinent ROS: as above Objective - Vital Signs Vital signs: Vital Signs Temp Pulse Pulse Resp BP Pulse Ox 11/02/16 11:48 97.9 F 16 119/76 98 11/02/16 07:41 78 97 11/02/16 07:24 78 16 97 11/02/16 07:07 97.2 F 16 120/70 99 11/02/16 04:00 97.4 F 78 12 134/78 99 11/01/16 23:57 97.3 F 80 12 128/76 98 11/01/16 19:58 96.6 F L 77 12 120/73 99 Intake and Output 11/02/16 11/02/16 11/02/16 05:59 13:59 21:59 Intake Total 1150 / 1150 400 / 400 350 / 350 Output Total 425 / 425 400 / 400 Balance 725 / 725 400 / 400 -50 / -50 Intake: IV 1050 / 1050 200 / 200 Sodium Chloride 0.9% 1, 1000 / 1000 000 ml @ 84 mls/hr IV . [id number] [facility] Rx#:[id number] Zosyn 2.25 gm In Dextrose 50 / 50 5% in Water 50 ml @ 100 mls/hr IV Q8H [facility] Rx#: [id number] Oral 100 / 100 200 / 200 350 / 350 Output: Urine Catheter Amount 425 / 425 400 / 400 Other: Meal Breakfast Percent of Meal Consumed 50% Feeding Ability Independent Intake & Output: Intake & Output 11/02/16 11/02/16 11/02/16 05:59 13:59 21:59 Intake Total 1150 / 1150 400 / 400 350 / 350 Output Total 425 / 425 400 / 400 Balance 725 / 725 400 / 400 -50 / -50 Intake: IV 1050 / 1050 200 / 200 Sodium Chloride 0.9% 1, 1000 / 1000 000 ml @ 84 mls/hr IV . [id number] [facility] Rx#:[id number] Zosyn 2.25 gm In Dextrose 50 / 50 5% in Water 50 ml @ 100 mls/hr IV Q8H [facility] Rx#: [id number] Oral 100 / 100 200 / 200 350 / 350 Output: Urine Catheter Amount 425 / 425 400 / 400 Other: Meal Breakfast Percent of Meal Consumed 50% Feeding Ability Independent - General Appearance General appearance: appears started age, cachectic, chronically ill EENT: mucous membranes moist Neck: no JVD Respiratory: clear Cardiology: no rub, no edema, normal S1, normal S2 Gastrointestinal: no tenderness, no guarding Integumentary: warm and dry Neurologic: alert and oriented x3 Musculoskeletal: no erythema, no cyanosis Psychiatric: mood/affect appropriate - Lab 11/02/16 09:11 11/02/16 04:00 Most recent lab results Calcium 7.6 mg/dl (8.6-10.4) L 11/02/16 04:00 Phosphorus 4.0 mg/dL (2.7-4.5) 11/02/16 04:00 Magnesium 1.9 mg/dL (1.6-2.5) 11/02/16 04:00 Urine Creatinine 33.1 mg/dL 10/29/16 04:19 Assessment and Plan (1) Acute on chronic renal failure s.creatinine down to 3.1, egfr is 19 24 hour urinary analysis shows creatinine clearance of only 5ml/min pt stillr efuses dialysis will follow as outpt and repeat a 24 hour urinary studies once in steady state it was made clear to him that he will have poor nutritional status, anemia, progressive weight loss and if he does not proceed with this and he needs to think about his goals of care no hyperkalemia, bicarb better on supplement Anemia: Hb stable at 8.7 stable, on b12 injections, will monitor, will initiate aranesp as outpt if he chooses to follow, educated about this UTI/ gram negative bacteremia: on antibiotics, UC shows pseudomonas, one isolate is intermediate sensitive to ciprofloxacin on dual antibiotics s/p change of stents not a surgical candidate for extensive intervention and recurrent UTI may remain an issue ensure urology follow up report if concerns of UTI malnutrition: very poor appetite, does not eat much, will have him only on low sodium diet and see if he can eat some more ENSURE HIGH PROTEIN DIET Ensure follow up with PCP overall poor prognosis given recurrent nature of his infections Status: Acute
[2016-11-03] MEDS ORDERED: CALCITRIOL 0.25 MCG CAPSULE PO SCH (09:00)
== END 2016-11-02 16:30 | disposition home health service (06) | DRG 871 ==
LOC: ED 11:42 → ICU 17:30 → MEDSUR 11-01 13:10
PROVIDERS: ADMIT Internal Medicine; ATTEND Internal Medicine